=== PATIENT | male | born 1955 | race Asian ===

== ENCOUNTER 2016-08-20 08:59 | Inpatient (IN) | payer MEDICAID ==
[~2016-08-20] VITALS: Ht 177.8 cm; Wt 68.0 kg
[2016-08-20] VITALS (13 sets, daily range): BP systolic 150–204; BP diastolic 84–108
[2016-08-20] MEDS ORDERED: Lidocaine 1% 10mg/ml/Epi 0.005mg/ml 30ml vial INJ ONE (09:11)
[2016-08-20] MEDS ORDERED: ceFAZolin sod 1 GM in D5W 55 ML IVPB ONE (09:15)
[2016-08-20] MEDS ORDERED: Lidocaine 1% 10mg/ml/EPI 0.01mg/ml 50ml INJ ONE (09:15)
[2016-08-20] MEDS ORDERED: Morphine Sulfate 2mg/ml Inj IVP ONE (09:15)
[2016-08-20] MEDS ORDERED: Tubing IV Cassette IV ONE (09:22)
[2016-08-20] MEDS ORDERED: NS 55 ML IV ONE (09:22)
[2016-08-20] MEDS ORDERED: Hydrogen Peroxide 120ml Bottle TOPIC ONE (09:33)
[2016-08-20 09:39] LABS: BASOPHILS % (AUTO) 0.8 % (0.0-2.0); LYMPHOCYTES % (AUTO) 33.6 % (20.0-45.0); MEAN CORPUSCULAR HEMOGLOBIN 27.8 PG (27.0-31.0); MEAN CORPUSCULAR HGB CONC 32.2 G/DL (32.0-36.0); MEAN CORPUSCULAR VOLUME 86 FL (80-99); MEAN PLATELET VOLUME 5.3 FL (6.5-10.1); NEUTROPHILS % (AUTO) 59.5 % (45.0-75.0); PLATELET COUNT 304 K/UL (150-450); RED BLOOD COUNT 4.18 M/UL (4.70-6.10); RED CELL DISTRIBUTION WIDTH 13.9 % (11.6-14.8); WHITE BLOOD COUNT 5.3 K/UL (4.8-10.8)
[2016-08-20 09:49] LABS: PROTHROMBIN TIME 9.8 SEC (9.30-11.50)
[2016-08-20 09:53] LABS: ALANINE AMINOTRANSFERASE 19 U/L (3-41); ALBUMIN/GLOBULIN RATIO 1.5 (1.0-2.7); ANION GAP 13 (5-15); ASPARTATE AMINO TRANSFERASE 24 U/L (5-40); CALCIUM 8.7 mg/dL (8.6-10.2); CARBON DIOXIDE 25 mEQ/L (20-30); CHLORIDE 101 mEQ/L (98-107); CREATININE 0.7 mg/dL (0.7-1.2); GLOMERULAR FILTRATION RATE > 60 mL/min (>60); HEMOLYSIS 0; SODIUM 139 mEQ/L (135-145); TOTAL PROTEIN 6.6 g/dL (6.6-8.7)
[2016-08-20] MEDS ORDERED: VITAMIN D1000 UNI1 ORAL (10:37)
[2016-08-20] MEDS ORDERED: GLUCOSAMINE1000 M1 PO (10:38)
[2016-08-20] MEDS ORDERED: FISH OIL CAP1000 MG ORAL (10:38)
--- NOTE | 2016-08-20 10:39 | Emergency Room Report ---
History of Present Illness General Chief Complaint: Laceration Source: Patient Present Illness HPI Patient is a 60-year-old male who presented after injury to his left thigh. 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 The patient was noted to have pain to the left thigh. He denies any numbness or weakness to his foot or leg. The injury occurred just prior to arrival. There is a large amount of bleeding initially Allergies: Coded Allergies: No Known Allergies (Unverified , 08/20/16) Patient History Reviewed Nursing Documentation: PMH: Agreed, PSxH: Agreed Nursing Documentation-PMH Past Medical History: No Stated History Physical Exam Vital Signs Date Time Temp Pulse Resp B/P Pulse Ox O2 Delivery O2 Flow Rate FiO2 08/20/16 08:59 98.2 60 16 192/102 99 Room Air Sp02 EP Interpretation: reviewed, normal General Appearance: normal inspection, well appearing, no apparent distress, alert, GCS 15 Head: atraumatic ENT: normal ENT inspection, hearing grossly normal, normal voice Neck: normal inspection, full range of motion, supple, no bony tend Respiratory: normal inspection, lungs clear, normal breath sounds, no respiratory distress, no retraction, no wheezing Cardiovascular #1: regular rate, rhythm, no edema Gastrointestinal: normal inspection, normal bowel sounds, non tender, soft, no guarding, no hernia Genitourinary: no CVA tenderness Musculoskeletal: normal inspection, back normal, normal range of motion, other - large visible muscle defect to left thigh Neurologic: normal inspection, alert, oriented x3, responsive, machine bunch maker III-XII nml as tested, speech normal Psychiatric: normal inspection, judgement/insight normal, mood/affect normal Skin: normal color, no rash, laceration - large laceration to left distal thigh anterior Medical Decision Making Diagnostic Impression: Primary Impression: Laceration Additional Impression: Laceration of left quadriceps muscle, fascia and tendon, initial encounter ER Course Patient presented for left lower extremity injury. Differential diagnosis included but was not limited to fracture, contusion, vascular insufficiency, aortic aneurysm, cellulitis, foreign body.Because of complexity of patient's case laboratory testing and imaging studies were ordered. Laboratory testing was unremarkable. Patient was noted to have evidence of deep laceration of the left distal thigh anteriorly. The patient was irrigated. Patient was given TDAP Vaccine. Patient was given IV Ancef.X-ray imaging of the of the left knee read by radiology showed large amount of gas present in the subcutaneous tissue the anterior suprapatellar region extending into the knee joint. There is no evident fracture noted. Dr. Connor Matthews was contacted for orthopedic consult. Dr. Glass was contacted for inpatient management. Labs Test 08/20/16 09:19 White Blood Count 5.3 K/UL (4.8-10.8) Red Blood Count 4.18 M/UL (4.70-6.10) Hemoglobin 11.6 G/DL (14.2-18.0) Hematocrit 36.2 % (42.0-52.0) Mean Corpuscular Volume 86 FL (80-99) Mean Corpuscular Hemoglobin 27.8 PG (27.0-31.0) Mean Corpuscular Hemoglobin Concent 32.2 G/DL (32.0-36.0) Red Cell Distribution Width 13.9 % (11.6-14.8) Platelet Count 304 K/UL (150-450) Mean Platelet Volume 5.3 FL (6.5-10.1) Neutrophils (%) (Auto) 59.5 % (45.0-75.0) Lymphocytes (%) (Auto) 33.6 % (20.0-45.0) Monocytes (%) (Auto) 5.0 % (1.0-10.0) Eosinophils (%) (Auto) 1.0 % (0.0-3.0) Basophils (%) (Auto) 0.8 % (0.0-2.0) Prothrombin Time 9.8 SEC (9.30-11.50) Prothromb Time International Ratio 1.0 (0.9-1.1) Activated Partial Thromboplast Time 24 SEC (23-33) Sodium Level 139 mEQ/L (135-145) Potassium Level 4.0 mEQ/L (3.4-4.9) Chloride Level 101 mEQ/L (98-107) Carbon Dioxide Level 25 mEQ/L (20-30) Anion Gap 13 (5-15) Blood Urea Nitrogen 15 mg/dL (7-23) Creatinine 0.7 mg/dL (0.7-1.2) Estimat Glomerular Filtration Rate > 60 mL/min (>60) Glucose Level 168 mg/dL (74-106) Calcium Level 8.7 mg/dL (8.6-10.2) Total Bilirubin 0.4 mg/dL (0.0-1.2) Aspartate Amino Transf (AST/SGOT) 24 U/L (5-40) Alanine Aminotransferase (ALT/SGPT) 19 U/L (3-41) Alkaline Phosphatase 98 U/L (40-129) Total Protein 6.6 g/dL (6.6-8.7) Albumin 4.0 g/dL (3.5-5.2) Globulin 2.6 g/dL Albumin/Globulin Ratio 1.5 (1.0-2.7) EKG Diagnostic Results Rate: bradycardiac - 52 Rhythm: NSR ST Segments: no acute changes ASA given to the pt in ED: No Rhythm Strip Diag. Results EP Interpretation: yes Rhythm: NSR, no PVC's, no ectopy Last Vital Signs Date Time Temp Pulse Resp B/P Pulse Ox O2 Delivery O2 Flow Rate FiO2 08/20/16 08:59 98.2 60 16 192/102 99 Room Air Status: unchanged Disposition: ADMITTED INPATIENT Condition: Serious Referrals: NOT CHOSEN IPA/,REFERRING (PCP) Octaviano Canas Aug 20, 2016 10:39
[2016-08-20] MEDS ORDERED: TdaP Vaccine 0.5ml Syr IM ONE (11:00)
--- NOTE | 2016-08-20 11:17 | Diagnostic Imaging Report ---
Indications: Penetrating injury to left knee, pain Technique: 3 views left knee. Findings: Comparison: None Large amount of gas is present in the subcutaneous soft tissues of the anterior suprapatellar region as well as throughout the suprapatellar bursa extending into the knee joint. The soft tissues in the region of the quadriceps tendon is surrounded by this gas or irregular. No fracture, dislocation, joint space widening , foreign body, or other acute changes are identified. IMPRESSION: Soft tissue and intra-articular gas likely due to penetrating trauma. No associated fracture or foreign body identified. Questionable injury to quadriceps tendon. No evidence of patellar displacement.
--- NOTE | 2016-08-20 13:20 | Pre-Procedure Note/Attestation ---
Pre-Procedure Note/Attestation Complete Prior to Procedure Planned Procedure: left Procedure Narrative: knee irrigation and debridement and tendon repair Indications for Procedure Pre-Operative Diagnosis: Open arthrotomy traumatic left knee Attestation I attest that I discussed the nature of the procedure; its benefits; risks and complications; and alternatives (and the risks and benefits of such alternatives ), prior to the procedure, with the patient (or the patient's legal customer service representative teacher). I attest that, if there was a reasonable possibility of needing a blood transfusion, the patient (or the patient's legal customer service representative teacher) was given the [facility] standardized written summary, pursuant to the [place] Blood Safety Act ([place] Health and Safety Code # 1645, as amended). I attest that I re-evaluated the patient just prior to the surgery and that there has been no change in the patient's H&P, except as documented below: BONITA SCHOFIELD Aug 20, 2016 13:20
[2016-08-20] MEDS ORDERED: ceFAZolin sod 1 GM in D5W 55 ML IV ONE (13:30)
[2016-08-20] MEDS ORDERED: Midazolam 2mg/2ml Inj IVP ONE (14:30)
[2016-08-20] MEDS ORDERED: HYDROmorphone 1mg/ml Carpuject SUBQ PRN (14:45)
[2016-08-20] MEDS ORDERED: Hydromorphone 0.5mg/0.5ml inj SUBQ PRN (14:45)
[2016-08-20] MEDS ORDERED: Norco 5mg/325mg tab ORAL PRN (14:45)
[2016-08-20] MEDS ORDERED: Propofol 10mg/ml 20ml IV ONE (14:55)
[2016-08-20] MEDS ORDERED: LR 1000ml ONE (15:00)
[2016-08-20] MEDS ORDERED: fentaNYL 100 mcg/2 mL IV ONE (15:00)
[2016-08-20] MEDS ORDERED: Midazolam 2mg/2ml Inj ONE (15:00)
[2016-08-20] MEDS ORDERED: LR 1000ml 1,000 ML IVLG SCH (15:38)
--- NOTE | 2016-08-20 15:38 | Anethesia Preoperative Eval ---
Anesthesia Pre-op PMH/ROS General Date of Evaluation: Aug 20, 2016 Time of Evaluation: 15:04 Anesthesiologist: Ritesh ASA Score: ASA 2 Mallampati Score Class I : Soft palate, uvula, fauces, pillars visible Class II: Soft palate, uvula, fauces visible Class III: Soft palate, base of uvula visible Class IV: Only hard plate visible Mallampati Classification: Class II Surgeon: Byron Diagnosis: L knee torn quadriceps tendon Surgical Procedure: L knee repair of quadriceps tendon Anesthesia History: none Family History: no anesthesia problems Allergies: Coded Allergies: No Known Allergies (Unverified , 08/20/16) Medications: see eMAR Past Medical History Cardiovascular: Reports: HTN, Denies: CAD, NH, arrhythmia, other, valve dz Pulmonary: Denies: COPD, MICHELLE, asthma, other Gastrointestinal/Genitourinary: Reports: GERD, Denies: CRI, ESRD, other Neurologic/Psychiatric: Denies: CVA, TIA, dementia, depression/anxiety, other Endocrine: Denies: DM, hypothyroidism, other, steroids HEENT: Denies: TLINGIT & HAIDA (L), TLINGIT & HAIDA (R), cataract (L), cataract (R), glaucoma, other Hematology/Immune: Denies: DVT, anemia, bleeding disorder, other Musculoskeletal/Integumentary: Reports: DJD, Denies: DDD, OA, RA, edema, other PMH Narrative: as above PSxH Narrative: see chart Anesthesia Pre-op Phys. Exam Physician Exam Last Vital Signs Date Time Temp Pulse Resp B/P Pulse Ox O2 Delivery O2 Flow Rate FiO2 08/20/16 13:26 182/103 08/20/16 12:30 97.5 50 18 98 Room Air Constitutional: NAD Neurologic: CN 2-12 intact Cardiovascular: RRR, no M/R/G Respiratory: CTA Airway Exam Mallampati Score: Class II MO: limited Neck: stiff ROM: limited Teeth: missing, broken Dentures: no lower, no upper Anesthesia Pre-op A/P Labs Hematology Test 08/20/16 09:19 White Blood Count 5.3 K/UL (4.8-10.8) Red Blood Count 4.18 M/UL (4.70-6.10) L Hemoglobin 11.6 G/DL (14.2-18.0) L Hematocrit 36.2 % (42.0-52.0) L Mean Corpuscular Volume 86 FL (80-99) Mean Corpuscular Hemoglobin 27.8 PG (27.0-31.0) Mean Corpuscular Hemoglobin Concent 32.2 G/DL (32.0-36.0) Red Cell Distribution Width 13.9 % (11.6-14.8) Platelet Count 304 K/UL (150-450) Mean Platelet Volume 5.3 FL (6.5-10.1) L Neutrophils (%) (Auto) 59.5 % (45.0-75.0) Lymphocytes (%) (Auto) 33.6 % (20.0-45.0) Monocytes (%) (Auto) 5.0 % (1.0-10.0) Eosinophils (%) (Auto) 1.0 % (0.0-3.0) Basophils (%) (Auto) 0.8 % (0.0-2.0) Coagulation Test 08/20/16 09:19 Prothrombin Time 9.8 SEC (9.30-11.50) Prothromb Time International Ratio 1.0 (0.9-1.1) Activated Partial Thromboplast Time 24 SEC (23-33) Chemistry Test 08/20/16 09:19 Sodium Level 139 mEQ/L (135-145) Potassium Level 4.0 mEQ/L (3.4-4.9) Chloride Level 101 mEQ/L (98-107) Carbon Dioxide Level 25 mEQ/L (20-30) Anion Gap 13 (5-15) Blood Urea Nitrogen 15 mg/dL (7-23) Creatinine 0.7 mg/dL (0.7-1.2) Estimat Glomerular Filtration Rate > 60 mL/min (>60) Glucose Level 168 mg/dL (74-106) H Calcium Level 8.7 mg/dL (8.6-10.2) Total Bilirubin 0.4 mg/dL (0.0-1.2) Aspartate Amino Transf (AST/SGOT) 24 U/L (5-40) Alanine Aminotransferase (ALT/SGPT) 19 U/L (3-41) Alkaline Phosphatase 98 U/L (40-129) Total Protein 6.6 g/dL (6.6-8.7) Albumin 4.0 g/dL (3.5-5.2) Globulin 2.6 g/dL Albumin/Globulin Ratio 1.5 (1.0-2.7) Studies Pre-op Studies: EKG - NSR Risk Assessment & Plan Assessment: ASA 2 Plan: GA with LMA Status Change Before Surgery: No Pre-Antibiotics Drug: Ancef 1gr. Given Within 1 Hr of Incision: Yes Time Given: 15:12 GABRIELA CONTRERAS M.D. Aug 20, 2016 15:38
[2016-08-20] MEDS ORDERED: DiphenhydrAMINE 50mg/ml Inj IVP PRN (15:45)
[2016-08-20] MEDS ORDERED: Hydromorphone 0.5mg/0.5ml inj IVP PRN (15:45)
[2016-08-20] MEDS ORDERED: Meperidine 25mg/ml Inj IV PRN (15:45)
[2016-08-20] MEDS ORDERED: Ketorolac 30mg Inj IV PRN (15:45)
[2016-08-20] MEDS ORDERED: Bacitracin Irrig 2000ml IRRIG ONE (16:00)
[2016-08-20] MEDS ORDERED: NS Irrig 2000ml IRRIG ONE (16:00)
--- NOTE | 2016-08-20 16:01 | Brief Operative Note ---
Immediate Post Operative Note Operative Note Chief Complaint: left knee laceration Pre-op Diagnosis: left knee laceration, quad tendon injury Procedure: left knee i &D and tendon repair Post-op Diagnosis: same as pre-op Findings: consistent w/pre-op dx studies Surgeon: md ramez [place]: noemi chavira Anesthesiologist: md cali Anesthesia: general Specimen: none Complications: none Condition: stable Estimated Blood Loss: minimal Drains: none Implant(s) used?: No ANT CHAVIRA Aug 20, 2016 16:01
--- NOTE | 2016-08-20 16:14 | Immediate Post-Op Evaluation ---
Immediate Post-Op Evalulation Immediate Post-Op Evalulation Procedure: L knee quadriceps tendon repair Date of Evaluation: Aug 20, 2016 Time of Evaluation: 16:13 IV Fluids: 800 Blood Products: none Estimated Blood Loss: <50 Urinary Output: none Blood Pressure Systolic: 150 Blood Pressure Diastolic: 76 Pulse Rate: 72 Respiratory Rate: 20 O2 Sat by Pulse Oximetry: 99 Temperature (Fahrenheit): 98.1 Pain Score (1-10): 2 Nausea: No Vomiting: No Complications none Patient Status: patent, none Hydration Status: adequate GABRIELA CONTRERAS M.D. Aug 20, 2016 16:14
--- NOTE | 2016-08-20 17:46 | Diagnostic Imaging Report ---
Indications: Status post left knee surgery Technique: Portable AP and lateral views left knee at 1653 Findings: Comparison: 1009 Percutaneous drainage catheter has been placed within the suprapatellar bursa and knee joint space. There has been subtotal resolution of intra-articular and subcutaneous gas with a few small remaining subcutaneous gas bubbles. Patella remains normally aligned. IMPRESSION: Surgical changes as described
[2016-08-20] MEDS: Docusate 100mg tablet ORAL SCH (18:00)
[2016-08-20] MEDS: D5 1/2NS 1,000 ML IV SCH (18:26)
[2016-08-20] MEDS: ceFAZolin sod 1 GM in D5W 55 ML IV SCH (22:51)
[2016-08-20] MEDS: oxyCONTIN 20mg tab ORAL SCH (22:51)
[2016-08-21] VITALS (7 sets, daily range): BP systolic 143–187; BP diastolic 84–105
--- NOTE | 2016-08-21 00:39 | Consultation ---
DATE OF CONSULTATION: 08/20/2016 ORTHOPEDIC CONSULTATION CONSULTING PHYSICIAN: Connor Matthews M.D. REQUESTING PHYSICIAN: Brando Glass M.D. REASON FOR CONSULTATION: Left traumatic arthrotomy with possible quadriceps tendon rupture with air in the knee. BRIEF HISTORY: The patient is a pleasant 60-year-old gentleman who was working with a skill saw and apparently that saw hit his left knee. He had a laceration over the proximal portion of his patella. He was evaluated at the [facility] and an x-ray showed air in the knee. Therefore, the patient was admitted for definitive care. The patient is generally healthy. He has had no other significant medical problems. PAST MEDICAL HISTORY: Significant for possible hypertension. The patient is not taking any medication. PAST SURGICAL HISTORY: MEDICATIONS: He states that he has not had any medications. He has not taken any. ALLERGIES: No known drug allergies. SOCIAL HISTORY: He smokes a pack a day. He drinks socially 1 to 2 drinks a week. He lives at home. He does not have any other significant issues. He is ambulatory. REVIEW OF SYSTEMS: There is no fever, chills, or any signs of infection. There are no other significant cardiopulmonary issues. PHYSICAL EXAMINATION: EXTREMITIES: Examination of the left knee reveals that he is able to wiggle his toes. He has got a laceration proximal to the patella. The laceration goes down deep over the quadriceps tendon. There may be a partial quadriceps tendon rupture; however, the patient is able to do a straight leg raise and lift his heel off the bed. NEUROLOGIC: Grossly intact distally except he has had some decreased sensation around the wound. X-RAYS: X-ray of the left knee 3 views, there is no fracture, however, there is air inside the left knee. IMPRESSION: Left knee traumatic arthrotomy with possible partial quadriceps tendon rupture. PLAN: At this time, we will go ahead and take the patient to the operating room for irrigation and debridement and washout and quadriceps tendon repair. Risks and benefits of the surgery were discussed. The risks of infection, bleeding, and neurovascular complication were discussed. He understands the nature of surgery and the complications associated with it and would like to proceed with it. All questions were answered. Possible stiffness, infection, needing further surgery and other complications were discussed with him and he understands and would like to proceed with surgery as soon as possible. All questions were answered. Connor Matthews M.D. DR: MEG JOB#: [id number] CC:
--- NOTE | 2016-08-21 00:49 | Operative Note - Dictated ---
DATE OF OPERATION: 08/20/2016 PREOPERATIVE DIAGNOSES: 1. Left knee traumatic arthrotomy. 2. Left knee quadriceps tendon rupture. POSTOPERATIVE DIAGNOSES: 1. Left knee traumatic arthrotomy with approximately a 7 cm wound at the proximal quadriceps musculotendinous junction. 2. Left knee quadriceps tendon rupture tear near the musculotendinous junction 5 cm oblique. PROCEDURE: 1. Irrigation and debridement with Simpulse lavage of the knee with triple antibiotic fluid, total of 2 liters. 2. Left knee quadriceps tendon repair using #1 Vicryl suture through the musculotendinous junction with multiple Vicryl stitches. 3. Placement of a large Hemovac drain in the left knee. 4. Meticulous layered knee wound closure with #2 Vicryl suture and skin closure using joseph. SURGEON: Connor Matthews M.D. PUBLIC ADDRESS ANNOUNCER: Josee Powell PA-C. ANESTHESIOLOGIST: Ovidio Awad M.D. ANESTHESIA: General LMA anesthesia. EBL: Less than 100 mL. COMPLICATIONS: None. TOURNIQUET TIME: None. BRIEF HISTORY: The patient is a pleasant 60-year-old male who sustained injury to his left knee when a circular saw hit his knee. He had new onset of pain and he was brought in to the [facility] ER. At the ER, it was noted that there was gas in the knee and air in the knee and after full discussion of the risks and benefits of the surgery and complications associated, which would including infection, bleeding, neurovascular complication, possible stiffness, possible decreased range of motion, possibility of continued pain, and other complication that may arise, he opted for surgical treatment for left knee irrigation and debridement, and quadriceps tendon repair. Risks, benefits, and complications of the surgery were discussed with him and he understood and agreed. OPERATIVE PROCEDURE: The patient was brought to the operating room table and was placed supine. All pressure points were well padded. General LMA anesthesia was induced. The left leg was prepped and draped in usual sterile fashion. The left leg wound was inspected. There was an approximately 5 cm oblique tear in the suprapatellar area. The incision was then extended distally by 2 cm and proximal 2 cm to allow access to the wound. The wound was then debrided sharply using a combination of knife and scissors. At this point, the quadriceps tendon was visualized. There was a tear through the quadriceps tendon at the musculotendinous junction measuring approximately 5 cm. This communicated with inside the knee. There was no gross contamination. At this point, using Simpulse irrigation, the knee joint and the wound were irrigated using 2 liters of fluid. Once this was completed, all the excess fluid was removed. The wound looked very clean. The knee joint had no contamination. At this point, the quadriceps tendon repair was performed using #1 Vicryl suture with [id number] stitches and multiple stitches at the musculotendinous junction. Once this was completed, a large Hemovac drain was placed inside the knee, which will be removed in about 24 hours. At this point, the skin edges were closed using 2-0 Vicryl suture and the skin was closed using joseph. Sterile dressing was applied. The patient was placed in a knee immobilizer and was taken to the recovery room in stable condition. All lap counts and instrument counts were correct at the end of the case. Connor Matthews M.D. DR: MEG JOB#: [id number] CC:
[2016-08-21] MEDS: D5 1/2NS 1,000 ML IV SCH ×2 (06:30→20:17)
[2016-08-21] MEDS: ceFAZolin sod 1 GM in D5W 55 ML IV SCH (06:30)
[2016-08-21] MEDS ORDERED: Norco 5mg/325mg tab ORAL PRN (06:45)
[2016-08-21 07:36] LABS: BASOPHILS % (AUTO) 0.6 % (0.0-2.0); EOSINOPHILS % (AUTO) 0.4 % (0.0-3.0); LYMPHOCYTES % (AUTO) 19.7 % (20.0-45.0); MEAN CORPUSCULAR HEMOGLOBIN 27.8 PG (27.0-31.0); MEAN CORPUSCULAR HGB CONC 31.9 G/DL (32.0-36.0); MEAN CORPUSCULAR VOLUME 87 FL (80-99); MONOCYTES % (AUTO) 7.4 % (1.0-10.0); NEUTROPHILS % (AUTO) 71.9 % (45.0-75.0); PLATELET COUNT 297 K/UL (150-450); RED BLOOD COUNT 4.29 M/UL (4.70-6.10); RED CELL DISTRIBUTION WIDTH 14.4 % (11.6-14.8); WHITE BLOOD COUNT 8.7 K/UL (4.8-10.8)
[2016-08-21 07:54] LABS: ANION GAP 12 (5-15); CALCIUM 8.4 mg/dL (8.6-10.2); CARBON DIOXIDE 27 mEQ/L (20-30); CHLORIDE 99 mEQ/L (98-107); CREATININE 0.9 mg/dL (0.7-1.2); GLOMERULAR FILTRATION RATE > 60 mL/min (>60); HEMOLYSIS 6; POTASSIUM 3.9 mEQ/L (3.4-4.9); SODIUM 138 mEQ/L (135-145)
--- NOTE | 2016-08-21 08:34 | Orthopedic Progress Note ---
Orthopedic - Progress Note Subjective Symptoms: c/o post-op knee pain Objective Vital Signs Laboratory Tests Test 08/20/16 09:19 08/21/16 06:47 White Blood Count 5.3 K/UL (4.8-10.8) 8.7 K/UL (4.8-10.8) # Red Blood Count 4.18 M/UL (4.70-6.10) L 4.29 M/UL (4.70-6.10) L Hemoglobin 11.6 G/DL (14.2-18.0) L 11.9 G/DL (14.2-18.0) L Hematocrit 36.2 % (42.0-52.0) L 37.3 % (42.0-52.0) L Mean Corpuscular Volume 86 FL (80-99) 87 FL (80-99) Mean Corpuscular Hemoglobin 27.8 PG (27.0-31.0) 27.8 PG (27.0-31.0) Mean Corpuscular Hemoglobin Concent 32.2 G/DL (32.0-36.0) 31.9 G/DL (32.0-36.0) L Red Cell Distribution Width 13.9 % (11.6-14.8) 14.4 % (11.6-14.8) Platelet Count 304 K/UL (150-450) 297 K/UL (150-450) Mean Platelet Volume 5.3 FL (6.5-10.1) L 6.0 FL (6.5-10.1) L Neutrophils (%) (Auto) 59.5 % (45.0-75.0) 71.9 % (45.0-75.0) Lymphocytes (%) (Auto) 33.6 % (20.0-45.0) 19.7 % (20.0-45.0) L Monocytes (%) (Auto) 5.0 % (1.0-10.0) 7.4 % (1.0-10.0) Eosinophils (%) (Auto) 1.0 % (0.0-3.0) 0.4 % (0.0-3.0) Basophils (%) (Auto) 0.8 % (0.0-2.0) 0.6 % (0.0-2.0) Prothrombin Time 9.8 SEC (9.30-11.50) Prothromb Time International Ratio 1.0 (0.9-1.1) Activated Partial Thromboplast Time 24 SEC (23-33) Sodium Level 139 mEQ/L (135-145) 138 mEQ/L (135-145) Potassium Level 4.0 mEQ/L (3.4-4.9) 3.9 mEQ/L (3.4-4.9) Chloride Level 101 mEQ/L (98-107) 99 mEQ/L (98-107) Carbon Dioxide Level 25 mEQ/L (20-30) 27 mEQ/L (20-30) Anion Gap 13 (5-15) 12 (5-15) Blood Urea Nitrogen 15 mg/dL (7-23) 13 mg/dL (7-23) Creatinine 0.7 mg/dL (0.7-1.2) 0.9 mg/dL (0.7-1.2) Estimat Glomerular Filtration Rate > 60 mL/min (>60) > 60 mL/min (>60) Glucose Level 168 mg/dL (74-106) H 165 mg/dL (74-106) H Calcium Level 8.7 mg/dL (8.6-10.2) 8.4 mg/dL (8.6-10.2) L Total Bilirubin 0.4 mg/dL (0.0-1.2) Aspartate Amino Transf (AST/SGOT) 24 U/L (5-40) Alanine Aminotransferase (ALT/SGPT) 19 U/L (3-41) Alkaline Phosphatase 98 U/L (40-129) Total Protein 6.6 g/dL (6.6-8.7) Albumin 4.0 g/dL (3.5-5.2) Globulin 2.6 g/dL Albumin/Globulin Ratio 1.5 (1.0-2.7) Last 24 Hour Vital Signs Date Time Temp Pulse Resp B/P Pulse Ox O2 Delivery O2 Flow Rate FiO2 08/21/16 07:05 159/97 08/21/16 04:00 97.0 70 20 159/97 97 Nasal Cannula 08/21/16 00:00 99.0 68 20 152/91 98 Nasal Cannula 08/20/16 20:00 98.1 72 18 151/92 98 Nasal Cannula 2.0 08/20/16 17:30 98.4 55 18 150/84 98 Nasal Cannula 3.0 08/20/16 17:15 98.6 08/20/16 17:10 98.4 62 16 166/93 100 Nasal Cannula 3.0 62 08/20/16 17:00 64 14 165/93 100 Nasal Cannula 3.0 64 08/20/16 16:53 204/97 08/20/16 16:50 58 16 189/96 100 Nasal Cannula 3.0 58 08/20/16 16:40 50 19 204/97 100 Simple Mask 6.0 50 08/20/16 16:30 52 17 180/98 100 Simple Mask 6.0 52 08/20/16 16:20 61 22 172/91 100 Simple Mask 6.0 61 08/20/16 16:15 64 18 160/95 100 Simple Mask 6.0 64 08/20/16 16:14 72 20 99 08/20/16 16:10 98.6 73 12 150/89 100 Simple Mask 6.0 73 08/20/16 13:26 182/103 08/20/16 12:30 97.5 50 18 182/103 98 Room Air 08/20/16 12:30 50 198/105 98 Room Air 08/20/16 11:44 98.3 46 16 179/92 100 Room Air 08/20/16 11:00 46 16 179/92 100 Room Air 08/20/16 10:00 50 16 177/108 100 Room Air 08/20/16 10:00 98.3 08/20/16 08:59 98.2 60 16 192/102 99 Room Air I&O Intake and Output 08/20/16 08/21/16 19:00 07:00 Intake Total 1030 ml 1007.5 ml Output Total 50 ml 60 ml Balance 980 ml 947.5 ml Intake Oral 0 ml 240 ml IV Total 1030 ml 767.5 ml Output Urine Total 0 ml Drainage Total 60 ml Estimated Blood Loss 50 ml # Bowel Movements 1 Wound: clean, dry, intact Drains: hemovac - 60cc outpt. drain removed at bedside today Neuro Status: normal Vascular Status: normal Assessment Post-op Diagnosis POD 1 Procedure Performed left knee i &D and tendon repair Plan Plan: discharge to home - once last dose abx given. f/u Dr. Matthews 2 weeks for suture removal and to change into hinge knee brace ANT MARQUEZ Aug 21, 2016 08:34
[2016-08-21] MEDS: celeBREX 200mg Cap **SURGERY PATIENTS ONLY ORAL SCH (09:03)
[2016-08-21] MEDS: Docusate 100mg tablet ORAL SCH ×3 (09:04→17:59)
[2016-08-21] MEDS: Vitamin D 1000 IU Tab ORAL SCH (09:04)
[2016-08-21] MEDS: oxyCONTIN 20mg tab ORAL SCH ×2 (09:04→20:17)
--- NOTE | 2016-08-21 12:06 | 48 Hour Post Anesthesia Eval ---
Post Anesthesia Evaluation Procedure: L knee quadriceps tendon repair Date of Evaluation: Aug 21, 2016 Time of Evaluation: 11:05 Blood Pressure Systolic: 168 0: 100 Pulse Rate: 78 Respiratory Rate: 18 Temperature (Fahrenheit): 98.5 O2 Sat by Pulse Oximetry: 97 Airway: patent Nausea: No Vomiting: No Pain Intensity: 2 Hydration Status: adequate Cardiopulmonary Status: Stable Mental Status/LOC: patient returned to baseline Follow-up Care/Observations: 0 Post-Anesthesia Complications: 0 Follow-up care needed: N/A Marc Ramirez MD Aug 21, 2016 12:06
--- NOTE | 2016-08-21 13:40 | Infectious Diseases Prog Note ---
Assessment/Plan Problems: (1) Injury of left thigh Assessment & Plan: with air in the suprapatellar area, will start vancomycin, cefepime and flagyl empirically to cover for possible infection , and send blood culture (2) Laceration of left quadriceps muscle, fascia and tendon, initial encounter Assessment & Plan: S/P surgical repair , will continue wide spectrum antibiotics , monitor culture (3) Hypertension Assessment & Plan: continue meds to keep systolic less than 140 Subjective Allergies: Coded Allergies: No Known Allergies (Unverified , 08/20/16) Objective Vital Signs Last 24 Hour Vital Signs Date Time Temp Pulse Resp B/P Pulse Ox O2 Delivery O2 Flow Rate FiO2 08/21/16 12:06 78 18 97 08/21/16 08:00 99.5 78 18 168/100 99 Room Air 08/21/16 07:05 159/97 08/21/16 04:00 97.0 70 20 159/97 97 Nasal Cannula 08/21/16 00:00 99.0 68 20 152/91 98 Nasal Cannula 08/20/16 20:00 98.1 72 18 151/92 98 Nasal Cannula 2.0 08/20/16 17:30 98.4 55 18 150/84 98 Nasal Cannula 3.0 08/20/16 17:15 98.6 08/20/16 17:10 98.4 62 16 166/93 100 Nasal Cannula 3.0 62 08/20/16 17:00 64 14 165/93 100 Nasal Cannula 3.0 64 08/20/16 16:53 204/97 08/20/16 16:50 58 16 189/96 100 Nasal Cannula 3.0 58 08/20/16 16:40 50 19 204/97 100 Simple Mask 6.0 50 08/20/16 16:30 52 17 180/98 100 Simple Mask 6.0 52 08/20/16 16:20 61 22 172/91 100 Simple Mask 6.0 61 08/20/16 16:15 64 18 160/95 100 Simple Mask 6.0 64 08/20/16 16:14 72 20 99 08/20/16 16:10 98.6 73 12 150/89 100 Simple Mask 6.0 73 Height (Feet): 5 Height (Inches): 10.00 Weight (Pounds): 150 Laboratory Tests Test 08/21/16 06:47 White Blood Count 8.7 K/UL (4.8-10.8) # Red Blood Count 4.29 M/UL (4.70-6.10) L Hemoglobin 11.9 G/DL (14.2-18.0) L Hematocrit 37.3 % (42.0-52.0) L Mean Corpuscular Volume 87 FL (80-99) Mean Corpuscular Hemoglobin 27.8 PG (27.0-31.0) Mean Corpuscular Hemoglobin Concent 31.9 G/DL (32.0-36.0) L Red Cell Distribution Width 14.4 % (11.6-14.8) Platelet Count 297 K/UL (150-450) Mean Platelet Volume 6.0 FL (6.5-10.1) L Neutrophils (%) (Auto) 71.9 % (45.0-75.0) Lymphocytes (%) (Auto) 19.7 % (20.0-45.0) L Monocytes (%) (Auto) 7.4 % (1.0-10.0) Eosinophils (%) (Auto) 0.4 % (0.0-3.0) Basophils (%) (Auto) 0.6 % (0.0-2.0) Sodium Level 138 mEQ/L (135-145) Potassium Level 3.9 mEQ/L (3.4-4.9) Chloride Level 99 mEQ/L (98-107) Carbon Dioxide Level 27 mEQ/L (20-30) Anion Gap 12 (5-15) Blood Urea Nitrogen 13 mg/dL (7-23) Creatinine 0.9 mg/dL (0.7-1.2) Estimat Glomerular Filtration Rate > 60 mL/min (>60) Glucose Level 165 mg/dL (74-106) H Calcium Level 8.4 mg/dL (8.6-10.2) L Current Medications Medications (Trade) Dose Ordered Sig/[place] Route PRN Reason Start Time Stop Time Status Last Admin Dose Admin Acetaminophen (Tylenol) 650 mg Q6H PRN ORAL Mild Pain/Temp > 100.5 08/20/16 14:45 09/19/16 14:44 Acetaminophen/ Hydrocodone Bitart ([place] 5/325) 1 tab Q4H PRN ORAL Mild Pain (Pain Scale 1-3) 08/21/16 06:45 08/28/16 06:44 Cefazolin Sodium/ Dextrose (Ancef/D5W) 55 ml @ 110 mls/hr Q8H IV 08/20/16 23:00 08/21/16 15:29 08/21/16 06:30 Celecoxib 200 mg 200 mg DAILY ORAL 08/21/16 09:00 09/20/16 08:59 08/21/16 09:03 Clonidine HCl 0.1 mg 0.1 mg Q4H PRN ORAL SBP>160, DBP>90 08/20/16 13:15 09/19/16 13:14 08/21/16 07:05 Dextrose/Sodium Chloride (D5 0.45% NS) 1,000 ml @ 75 mls/hr Q13H IV 08/20/16 18:00 09/19/16 17:59 08/21/16 06:30 Docusate Sodium (Colace) 100 mg THREE TIMES A DAY ORAL 08/20/16 18:00 09/19/16 17:59 08/21/16 13:17 Hydromorphone HCl (Dilaudid) 0.5 mg Q4H PRN SUBQ Mild Pain (Pain Scale 1-3) 08/20/16 14:45 08/27/16 14:44 Hydromorphone HCl (Dilaudid) 1 mg Q3H PRN SUBQ Moderate Pain (Pain Scale 4-6) 08/20/16 14:45 08/27/16 14:44 Hydromorphone HCl (Dilaudid) 2 mg Q2H PRN SUBQ Severe Pain (Pain Scale 7-10) 08/20/16 14:45 08/27/16 14:44 Ondansetron HCl (Zofran) 4 mg Q6H PRN IVP Nausea & Vomiting 08/20/16 14:45 09/19/16 14:44 Oxycodone HCl (OxyCONTIN) 20 mg EVERY 12 HOURS ORAL 08/20/16 21:00 08/27/16 20:59 08/21/16 09:04 Temazepam (Restoril) 7.5 mg HSPRN PRN ORAL Insomnia 08/20/16 14:45 08/27/16 14:44 Vitamin D (Vitamin D) 1,000 intlu DAILY ORAL 08/21/16 09:00 09/20/16 08:59 08/21/16 09:04 Momo Cho M.D. Aug 21, 2016 13:40
[2016-08-21] MEDS: metroNIDAZOLE 500mg tab ORAL SCH ×2 (14:33→21:30)
[2016-08-21] MEDS: Vancomycin 1 GM in D5W 275 ML IVPB SCH (16:04)
--- NOTE | 2016-08-21 16:29 | Cardiology Report ---
APPROVED REPORT EKG Measurement Heart [id number] Sinus bradycardia Voltage criteria for left ventricular hypertrophy Abnormal ECG
[2016-08-21] MEDS: Cefepime HCl 1 GM in D5W 55 ML IVPB SCH (17:59)
--- NOTE | 2016-08-21 19:39 | History and Physical Report ---
DATE OF ADMISSION: 08/20/2016 HISTORY OF PRESENT ILLNESS: The patient is here because of attempting to cut himself with electric saw on the left thigh. 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 Dr. Matthews was aware and admit the patient emergently to the operating room for surgical repair. The patient denies any significant pain at this point. Denies nausea, vomiting, or diarrhea. Denies fevers and chills. PAST MEDICAL HISTORY: Hypertension. PAST SURGICAL HISTORY: Abdominal surgery of unknown etiology. ALLERGIES: No known allergies. MEDICATIONS: Fish oil, vitamin D3. FAMILY HISTORY: Noncontributory. SOCIAL HISTORY: Denies history of smoking, alcohol, or illicit drugs. REVIEW OF SYSTEMS: HEENT: Denies headache. Respiratory: Denies shortness of breath. Denies cough. Cardiovascular: Denies chest pain. No orthopnea. Gastrointestinal: Denies nausea, vomiting, or diarrhea. Extremities: Reports pain in the left thigh where the injury was done. Central Nervous System: Denies change in vision or speech pattern. PHYSICAL EXAMINATION: VITAL SIGNS: Temperature 100.4, pulse 55, blood pressure 160/84. HEENT: PERRLA. NECK: Supple. No lymphadenopathy. CHEST: Clear to auscultation. GASTROINTESTINAL: Soft and nontender. EXTREMITIES: Status post surgical repair. NEUROLOGIC: Oriented. LABORATORY DATA: WBC 5.3, hemoglobin 11.6, platelets 304,000. Sodium 139, potassium 4, BUN 15, creatinine 0.7, glucose 168. ASSESSMENT AND PLAN: 1. . 2. Hypertension. 3. Saw injury on the left thigh, accidental. I have asked basically Dr. Godoy, Dr. Cho, Dr. Camacho, and Dr. Matthews to see the patient. Dr. Camacho is in in charge of clearing the patient for surgery. Brando Glass M.D. DR: Isabell JOB#: [id number] CC:
--- NOTE | 2016-08-21 20:39 | Consultation ---
DATE OF CONSULTATION: INFECTIOUS DISEASE CONSULTATION CONSULTING PHYSICIAN: Momo Cho M.D. REQUESTING PHYSICIAN: Brando Glass M.D. REASON FOR CONSULTATION: Left thigh laceration with quadriceps tendon rupture due to a circular saw. Recommendation for antibiotics treatment. 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 The patient notes that deep skin cut above his left knee on the anterior medial aspect. He started bleeding and he tied his thigh to stop the bleeding. The patient was brought into the emergency room by paramedics after he had a large amount of bleeding from the left thigh. His temperature was 98.2 degrees and saturating 99% on room air. X-ray of the left knee showed gap in the subcutaneous tissue in the anterior suprapatellar region extending into the knee joint, but no evidence of fracture. The patient was taken to the operating room by Dr. Matthews and he had left quadriceps tendon irrigation and debridement with incision and drainage of the left knee joint and he was started on cefazolin and I was consulted by the primary provider for antibiotics recommendation and further treatment. PAST MEDICAL HISTORY: Negative. PAST SURGICAL HISTORY: Negative. SOCIAL HISTORY: The patient is single. Denies using any drugs, tobacco, or alcohol. He works in construction. MEDICATIONS: The patient is on cefazolin 1 g IV q.8 hours. For the rest of his medications, please refer to MAR. ALLERGIES: He has no known drug allergy. REVIEW OF SYSTEMS: A 12-point of system reviewed were all negative apart from the one I mentioned above in my History and Physical. PHYSICAL EXAMINATION: VITAL SIGNS: Temperature is 98.1 degrees, pulse 72, respirations 20, blood pressure 143/86, and saturation 99% on room air. GENERAL: A middle-aged, Slovak speaking, laying in bed, awake, alert, and not in distress. HEENT: Normocephalic and atraumatic. Pupils both reactive to light. Dry oral mucosa. No exudate. NECK: Supple. No lymphadenopathy. CARDIOVASCULAR: Regular rate and rhythm. No murmur. No gallop. LUNGS: Clear bilaterally. No wheezing or rhonchi. ABDOMEN: Soft, nontender, and nondistended. Positive bowel sounds. No hepatosplenomegaly or ascites. EXTREMITIES: No edema or cyanosis. Left knee covered with dressing and bandage. LABORATORY DATA: Labs showed white count of 8.7, hemoglobin of 11.9, and platelet count of 297,000. BUN of 12 and creatinine of 0.9. IMAGING: Knee x-ray showed soft tissue and intraarticular and subcutaneous gas with few small remaining subcutaneous gas bubble. Patella remain normally aligned. ASSESSMENT AND PLAN: 1. Left [id number] soft tissue injury with air in the suprapatellar area, suspect soft tissue infection. We will send blood culture. Start vancomycin, cefepime, and Flagyl empirically. The patient had surgical washout. No culture was obtained at this point. 2. Laceration of the left quadriceps muscle fascia and tendon status post surgical debridement and wash out. We will start the patient on wide-spectrum antibiotics therapy and await blood culture. Further recommendation as per ortho. 3. Hypertension. Continue blood pressure medications. Keep systolic less than 140. Momo Cho M.D. DR: ANIL JOB#: [id number] CC:
--- NOTE | 2016-08-21 22:40 | Cardiology Progress Note ---
Assessment/Plan Assessment/Plan The patient is seen and examined, full consult note will be dictated. Objective Last 24 Hour Vital Signs Date Time Temp Pulse Resp B/P Pulse Ox O2 Delivery O2 Flow Rate FiO2 08/21/16 21:34 78 169/93 08/21/16 20:25 187/105 08/21/16 20:00 97.9 77 18 187/105 96 Room Air 08/21/16 16:00 98.1 64 20 150/84 94 Room Air 08/21/16 12:06 78 18 97 08/21/16 12:00 98.1 72 20 143/86 99 Room Air 08/21/16 08:00 99.5 78 18 168/100 99 Room Air 08/21/16 07:05 159/97 08/21/16 04:00 97.0 70 20 159/97 97 Nasal Cannula 08/21/16 00:00 99.0 68 20 152/91 98 Nasal Cannula Intake and Output 08/20/16 08/21/16 19:00 07:00 Intake Total 1030 ml 1007.5 ml Output Total 50 ml 60 ml Balance 980 ml 947.5 ml Intake Oral 0 ml 240 ml IV Total 1030 ml 767.5 ml Output Urine Total 0 ml Drainage Total 60 ml Estimated Blood Loss 50 ml # Bowel Movements 1 Laboratory Tests Test 08/21/16 06:47 White Blood Count 8.7 K/UL (4.8-10.8) # Red Blood Count 4.29 M/UL (4.70-6.10) L Hemoglobin 11.9 G/DL (14.2-18.0) L Hematocrit 37.3 % (42.0-52.0) L Mean Corpuscular Volume 87 FL (80-99) Mean Corpuscular Hemoglobin 27.8 PG (27.0-31.0) Mean Corpuscular Hemoglobin Concent 31.9 G/DL (32.0-36.0) L Red Cell Distribution Width 14.4 % (11.6-14.8) Platelet Count 297 K/UL (150-450) Mean Platelet Volume 6.0 FL (6.5-10.1) L Neutrophils (%) (Auto) 71.9 % (45.0-75.0) Lymphocytes (%) (Auto) 19.7 % (20.0-45.0) L Monocytes (%) (Auto) 7.4 % (1.0-10.0) Eosinophils (%) (Auto) 0.4 % (0.0-3.0) Basophils (%) (Auto) 0.6 % (0.0-2.0) Sodium Level 138 mEQ/L (135-145) Potassium Level 3.9 mEQ/L (3.4-4.9) Chloride Level 99 mEQ/L (98-107) Carbon Dioxide Level 27 mEQ/L (20-30) Anion Gap 12 (5-15) Blood Urea Nitrogen 13 mg/dL (7-23) Creatinine 0.9 mg/dL (0.7-1.2) Estimat Glomerular Filtration Rate > 60 mL/min (>60) Glucose Level 165 mg/dL (74-106) H Calcium Level 8.4 mg/dL (8.6-10.2) CHRISTINA SEN Aug 21, 2016 22:40
[2016-08-22] VITALS: BP 152/91
[2016-08-22] MEDS: Vancomycin 1 GM in D5W 275 ML IVPB SCH ×2 (03:02→16:31)
[2016-08-22 04:00] VITALS: BP 158/98
[2016-08-22] MEDS: Cefepime HCl 1 GM in D5W 55 ML IVPB SCH (05:25)
[2016-08-22] MEDS: metroNIDAZOLE 500mg tab ORAL SCH ×3 (05:25→21:14)
[2016-08-22 06:49] LABS: BASOPHILS % (AUTO) 0.5 % (0.0-2.0); EOSINOPHILS % (AUTO) 1.1 % (0.0-3.0); LYMPHOCYTES % (AUTO) 26.9 % (20.0-45.0); MEAN CORPUSCULAR HEMOGLOBIN 27.9 PG (27.0-31.0); MEAN CORPUSCULAR HGB CONC 32.4 G/DL (32.0-36.0); MEAN CORPUSCULAR VOLUME 86 FL (80-99); MEAN PLATELET VOLUME 6.1 FL (6.5-10.1); MONOCYTES % (AUTO) 8.1 % (1.0-10.0); NEUTROPHILS % (AUTO) 63.4 % (45.0-75.0); PLATELET COUNT 259 K/UL (150-450); RED BLOOD COUNT 3.91 M/UL (4.70-6.10); RED CELL DISTRIBUTION WIDTH 13.7 % (11.6-14.8); WHITE BLOOD COUNT 7.2 K/UL (4.8-10.8)
[2016-08-22 07:03] LABS: ANION GAP 15 (5-15); CALCIUM 8.1 mg/dL (8.6-10.2); CARBON DIOXIDE 26 mEQ/L (20-30); CHLORIDE 101 mEQ/L (98-107); CREATININE 0.8 mg/dL (0.7-1.2); GLOMERULAR FILTRATION RATE > 60 mL/min (>60); HEMOLYSIS 1; POTASSIUM 3.8 mEQ/L (3.4-4.9); SODIUM 142 mEQ/L (135-145)
[2016-08-22 08:00] VITALS: BP 179/106
[2016-08-22] MEDS: Docusate 100mg tablet ORAL SCH ×3 (09:02→17:58)
[2016-08-22] MEDS: celeBREX 200mg Cap **SURGERY PATIENTS ONLY ORAL SCH (09:02)
[2016-08-22] MEDS: oxyCONTIN 20mg tab ORAL SCH ×2 (09:04→21:15)
[2016-08-22] MEDS: Vitamin D 1000 IU Tab ORAL SCH (09:04)
[2016-08-22 12:00] VITALS: BP 147/93
--- NOTE | 2016-08-22 12:29 | General Progress Note ---
Assessment/Plan Problem List: (1) Injury of left thigh ICD Codes: S79.922A - Unspecified injury of left thigh, initial encounter SNOMED: 4163052 (2) Hypertension ICD Codes: I10 - Essential (primary) hypertension SNOMED: 99207967 (3) Laceration ICD Codes: T14.8 - Other injury of unspecified body region SNOMED: 875730819 Status: progressing Assessment/Plan afebrile s/p repair of saw laceration not ready for dc still has pain Subjective ROS Limited/Unobtainable: Yes Constitutional: Reports: no symptoms Allergies: Coded Allergies: No Known Allergies (Unverified , 08/20/16) Objective Last 24 Hour Vital Signs Date Time Temp Pulse Resp B/P Pulse Ox O2 Delivery O2 Flow Rate FiO2 08/22/16 09:03 71 179/106 08/22/16 09:03 71 179/106 08/22/16 08:00 98.2 71 20 179/106 93 Room Air 08/22/16 05:21 158/98 08/22/16 04:00 98.6 65 18 158/98 97 Room Air 08/22/16 00:00 98.6 69 18 152/91 96 Room Air 08/21/16 21:34 78 169/93 08/21/16 20:25 187/105 08/21/16 20:00 97.9 77 18 187/105 96 Room Air 08/21/16 16:00 98.1 64 20 150/84 94 Room Air Intake and Output 08/21/16 08/22/16 19:00 07:00 Intake Total 1907.708 ml 1717.416 ml Output Total 2200 ml 1300 ml Balance -292.292 ml 417.416 ml Intake Oral 840 ml 920 ml IV Total 1067.708 ml 797.416 ml Output Urine Total 2200 ml 1300 ml Laboratory Tests 08/22/16 05:25: White Blood Count 7.2, Red Blood Count 3.91L, Hemoglobin 10.9L, Hematocrit 33.6L , Mean Corpuscular Volume 86, Mean Corpuscular Hemoglobin 27.9, Mean Corpuscular Hemoglobin Concent 32.4, Red Cell Distribution Width 13.7, Platelet Count 259, Mean Platelet Volume 6.1L, Neutrophils (%) (Auto) 63.4, Lymphocytes ( %) (Auto) 26.9, Monocytes (%) (Auto) 8.1, Eosinophils (%) (Auto) 1.1, Basophils (%) (Auto) 0.5, Sodium Level 142, Potassium Level 3.8, Chloride Level 101, Carbon Dioxide Level 26, Anion Gap 15, Blood Urea Nitrogen 9, Creatinine 0.8, Estimat Glomerular Filtration Rate > 60, Glucose Level 155H, Calcium Level 8.1L Height (Feet): 5 Height (Inches): 10.00 Weight (Pounds): 150 EENT: PERRL/EOMI Neck: supple Cardiovascular: regular rhythm Respiratory/Chest: lungs clear Brando Glass MD Aug 22, 2016 12:29
--- NOTE | 2016-08-22 15:24 | Infectious Diseases Prog Note ---
Assessment/Plan Problems: (1) Injury of left thigh Assessment & Plan: with air in the suprapatellar area, continue vancomycin, cefepime and flagyl empirically to cover for possible infection , and await blood culture (2) Laceration of left quadriceps muscle, fascia and tendon, initial encounter Assessment & Plan: S/P surgical repair , will continue wide spectrum antibiotics , monitor culture (3) Hypertension Assessment & Plan: continue meds to keep systolic less than 140 Subjective Constitutional: Reports: no symptoms HEENT: Reports: no symptoms Respiratory: Reports: no symptoms Breasts: Reports: no symptoms Cardiovascular: Reports: no symptoms Gastrointestinal/Abdominal: Reports: no symptoms Genitourinary: Reports: no symptoms Neurologic: Reports: no symptoms Psychiatric: Reports: no symptoms Skin: Reports: no symptoms Musculoskeletal: Reports: pain Allergies: Coded Allergies: No Known Allergies (Unverified , 08/20/16) Objective Vital Signs Last 24 Hour Vital Signs Date Time Temp Pulse Resp B/P Pulse Ox O2 Delivery O2 Flow Rate FiO2 08/22/16 12:00 98.1 59 20 147/93 99 Room Air 08/22/16 09:03 71 179/106 08/22/16 09:03 71 179/106 08/22/16 08:00 98.2 71 20 179/106 93 Room Air 08/22/16 05:21 158/98 08/22/16 04:00 98.6 65 18 158/98 97 Room Air 08/22/16 00:00 98.6 69 18 152/91 96 Room Air 08/21/16 21:34 78 169/93 08/21/16 20:25 187/105 08/21/16 20:00 97.9 77 18 187/105 96 Room Air 08/21/16 16:00 98.1 64 20 150/84 94 Room Air Height (Feet): 5 Height (Inches): 10.00 Weight (Pounds): 150 General Appearance: WD/WN, no acute distress HEENT: normocephalic, atraumatic, anicteric, mucous membranes moist Respiratory/Chest: chest wall non-tender, lungs clear, normal breath sounds, no respiratory distress, no accessory muscle use Cardiovascular: normal peripheral pulses, normal rate, regular rhythm, no JVD Abdomen: normal bowel sounds, soft, non tender, no organomegaly, non distended , no mass Extremities: no cyanosis, no clubbing Skin: no rash, no lesions Musculoskeletal: normal muscle bulk, other - left thigh surgical wound , covered with bandage and dressing Laboratory Tests Test 08/22/16 05:25 White Blood Count 7.2 K/UL (4.8-10.8) Red Blood Count 3.91 M/UL (4.70-6.10) L Hemoglobin 10.9 G/DL (14.2-18.0) L Hematocrit 33.6 % (42.0-52.0) L Mean Corpuscular Volume 86 FL (80-99) Mean Corpuscular Hemoglobin 27.9 PG (27.0-31.0) Mean Corpuscular Hemoglobin Concent 32.4 G/DL (32.0-36.0) Red Cell Distribution Width 13.7 % (11.6-14.8) Platelet Count 259 K/UL (150-450) Mean Platelet Volume 6.1 FL (6.5-10.1) L Neutrophils (%) (Auto) 63.4 % (45.0-75.0) Lymphocytes (%) (Auto) 26.9 % (20.0-45.0) Monocytes (%) (Auto) 8.1 % (1.0-10.0) Eosinophils (%) (Auto) 1.1 % (0.0-3.0) Basophils (%) (Auto) 0.5 % (0.0-2.0) Sodium Level 142 mEQ/L (135-145) Potassium Level 3.8 mEQ/L (3.4-4.9) Chloride Level 101 mEQ/L (98-107) Carbon Dioxide Level 26 mEQ/L (20-30) Anion Gap 15 (5-15) Blood Urea Nitrogen 9 mg/dL (7-23) Creatinine 0.8 mg/dL (0.7-1.2) Estimat Glomerular Filtration Rate > 60 mL/min (>60) Glucose Level 155 mg/dL (74-106) H Calcium Level 8.1 mg/dL (8.6-10.2) L Current Medications Medications (Trade) Dose Ordered Sig/[place] Route PRN Reason Start Time Stop Time Status Last Admin Dose Admin Acetaminophen (Tylenol) 650 mg Q6H PRN ORAL Mild Pain/Temp > 100.5 08/20/16 14:45 09/19/16 14:44 Acetaminophen/ Hydrocodone Bitart 1 tab 1 tab Q4H PRN ORAL Mild Pain (Pain Scale 1-3) 08/21/16 06:45 08/28/16 06:44 Amlodipine Besylate 5 mg 5 mg DAILY ORAL 08/22/16 09:00 09/21/16 08:59 08/22/16 09:03 Cefepime HCl/ Sodium Chloride (Maxipime/Sodium Chloride) 55 ml @ 110 mls/hr Q12HR@0600,1800 IVPB 08/22/16 18:00 08/29/16 17:59 Celecoxib (CeleBREX) 200 mg DAILY ORAL 08/21/16 09:00 09/20/16 08:59 08/22/16 09:02 Clonidine HCl (Catapres) 0.1 mg Q4H PRN ORAL SBP>160, DBP>90 08/20/16 13:15 09/19/16 13:14 08/22/16 05:21 Docusate Sodium (Colace) 100 mg THREE TIMES A DAY ORAL 08/20/16 18:00 09/19/16 17:59 08/22/16 13:07 Hydromorphone HCl (Dilaudid) 0.5 mg Q4H PRN SUBQ Mild Pain (Pain Scale 1-3) 08/20/16 14:45 08/27/16 14:44 Hydromorphone HCl (Dilaudid) 1 mg Q3H PRN SUBQ Moderate Pain (Pain Scale 4-6) 08/20/16 14:45 08/27/16 14:44 Hydromorphone HCl (Dilaudid) 2 mg Q2H PRN SUBQ Severe Pain (Pain Scale 7-10) 08/20/16 14:45 08/27/16 14:44 Metoprolol Succinate (Toprol XL) 25 mg DAILY ORAL 08/22/16 09:00 09/21/16 08:59 08/22/16 09:03 Metronidazole (Flagyl) 500 mg Q8HR ORAL 08/21/16 14:00 08/28/16 13:59 08/22/16 14:16 Ondansetron HCl (Zofran) 4 mg Q6H PRN IVP Nausea & Vomiting 08/20/16 14:45 09/19/16 14:44 Oxycodone HCl (OxyCONTIN) 20 mg EVERY 12 HOURS ORAL 08/20/16 21:00 08/27/16 20:59 08/22/16 09:04 Temazepam (Restoril) 7.5 mg HSPRN PRN ORAL Insomnia 08/20/16 14:45 08/27/16 14:44 Vancomycin HCl/ Dextrose (Vancomycin/D5W) 275 ml @ 183.708 mls/hr Q12HR@0400,1600 IVPB 08/21/16 16:00 08/26/16 15:59 08/22/16 03:02 Vitamin D (Vitamin D) 1,000 intlu DAILY ORAL 08/21/16 09:00 09/20/16 08:59 08/22/16 09:04 Momo Cho M.D. Aug 22, 2016 15:24
[2016-08-22 16:20] VITALS: BP 144/81
[2016-08-22] MEDS ORDERED: D5 1/2NS 1000ml IV ONE (17:16)
[2016-08-22] MEDS ORDERED: Tubing IV Secondary IV ONE (17:16)
[2016-08-22] MEDS: Cefepime HCl 1 GM in NS 55 ML IVPB SCH (17:57)
[2016-08-22 20:00] VITALS: BP 152/89
--- NOTE | 2016-08-22 22:08 | Cardiology Progress Note ---
Assessment/Plan Assessment/Plan 1. Accelerated HTN, increase amlodipine to 5mg po bid, will continue to monitor BP, pain control. 2. s/p Quad tendon repair and left knee arthrotomy POD #2 Subjective Subjective No cardiac events. POD #2 Objective Last 24 Hour Vital Signs Date Time Temp Pulse Resp B/P Pulse Ox O2 Delivery O2 Flow Rate FiO2 08/22/16 20:00 98.2 62 19 152/89 95 Room Air 08/22/16 16:20 97.7 55 18 144/81 100 Room Air 08/22/16 12:00 98.1 59 20 147/93 99 Room Air 08/22/16 09:03 71 179/106 08/22/16 09:03 71 179/106 08/22/16 08:00 98.2 71 20 179/106 93 Room Air 08/22/16 05:21 158/98 08/22/16 04:00 98.6 65 18 158/98 97 Room Air 08/22/16 00:00 98.6 69 18 152/91 96 Room Air Intake and Output 08/21/16 08/22/16 19:00 07:00 Intake Total 1907.708 ml 1717.416 ml Output Total 2200 ml 1300 ml Balance -292.292 ml 417.416 ml Intake Oral 840 ml 920 ml IV Total 1067.708 ml 797.416 ml Output Urine Total 2200 ml 1300 ml Laboratory Tests Test 08/22/16 05:25 White Blood Count 7.2 K/UL (4.8-10.8) Red Blood Count 3.91 M/UL (4.70-6.10) L Hemoglobin 10.9 G/DL (14.2-18.0) L Hematocrit 33.6 % (42.0-52.0) L Mean Corpuscular Volume 86 FL (80-99) Mean Corpuscular Hemoglobin 27.9 PG (27.0-31.0) Mean Corpuscular Hemoglobin Concent 32.4 G/DL (32.0-36.0) Red Cell Distribution Width 13.7 % (11.6-14.8) Platelet Count 259 K/UL (150-450) Mean Platelet Volume 6.1 FL (6.5-10.1) L Neutrophils (%) (Auto) 63.4 % (45.0-75.0) Lymphocytes (%) (Auto) 26.9 % (20.0-45.0) Monocytes (%) (Auto) 8.1 % (1.0-10.0) Eosinophils (%) (Auto) 1.1 % (0.0-3.0) Basophils (%) (Auto) 0.5 % (0.0-2.0) Sodium Level 142 mEQ/L (135-145) Potassium Level 3.8 mEQ/L (3.4-4.9) Chloride Level 101 mEQ/L (98-107) Carbon Dioxide Level 26 mEQ/L (20-30) Anion Gap 15 (5-15) Blood Urea Nitrogen 9 mg/dL (7-23) Creatinine 0.8 mg/dL (0.7-1.2) Estimat Glomerular Filtration Rate > 60 mL/min (>60) Glucose Level 155 mg/dL (74-106) H Calcium Level 8.1 mg/dL (8.6-10.2) L Objective HEENT: Normocephalic and atraumatic. Pupils both reactive to light. Dry oral mucosa. NECK: No JVD, no carotid bruit, carotid upstroke 2+ B/L CARDIOVASCULAR: Regular rate and rhythm. No murmurs, gallops or rubs, normal S1S2 LUNGS: Clear bilaterally. ABDOMEN: Soft, nontender, and nondistended. Positive bowel sounds. No hepatosplenomegaly or ascites. EXTREMITIES: No edema,clubbing or cyanosis. Left knee covered with dressing and bandage. CHRISTINA ARREOLA Aug 22, 2016 22:08
[2016-08-23] VITALS (8 sets, daily range): BP systolic 129–176; BP diastolic 60–102
[2016-08-23 03:27] LABS: ANION GAP 15 (5-15); CALCIUM 8.7 mg/dL (8.6-10.2); CARBON DIOXIDE 24 mEQ/L (20-30); CHLORIDE 101 mEQ/L (98-107); CREATININE 0.8 mg/dL (0.7-1.2); GLOMERULAR FILTRATION RATE > 60 mL/min (>60); HEMOLYSIS 2; SODIUM 140 mEQ/L (135-145)
[2016-08-23 03:30] LABS: BASOPHILS % (AUTO) 0.6 % (0.0-2.0); EOSINOPHILS % (AUTO) 1.3 % (0.0-3.0); LYMPHOCYTES % (AUTO) 16.9 % (20.0-45.0); MEAN CORPUSCULAR HEMOGLOBIN 27.9 PG (27.0-31.0); MEAN CORPUSCULAR VOLUME 87 FL (80-99); MEAN PLATELET VOLUME 6.5 FL (6.5-10.1); MONOCYTES % (AUTO) 5.8 % (1.0-10.0); NEUTROPHILS % (AUTO) 75.4 % (45.0-75.0); PLATELET COUNT 285 K/UL (150-450); RED BLOOD COUNT 3.85 M/UL (4.70-6.10); RED CELL DISTRIBUTION WIDTH 14.3 % (11.6-14.8); WHITE BLOOD COUNT 7.1 K/UL (4.8-10.8)
[2016-08-23] MEDS: Vancomycin 1 GM in D5W 275 ML IVPB SCH (03:40)
[2016-08-23] MEDS: Cefepime HCl 1 GM in NS 55 ML IVPB SCH ×2 (05:35→17:26)
[2016-08-23] MEDS: metroNIDAZOLE 500mg tab ORAL SCH ×3 (05:40→21:29)
[2016-08-23] MEDS: oxyCONTIN 20mg tab ORAL SCH ×2 (08:25→21:30)
[2016-08-23] MEDS: Vitamin D 1000 IU Tab ORAL SCH (08:26)
[2016-08-23] MEDS: celeBREX 200mg Cap **SURGERY PATIENTS ONLY ORAL SCH (08:27)
[2016-08-23] MEDS: Docusate 100mg tablet ORAL SCH ×3 (08:27→17:25)
[2016-08-23] MEDS: Vancomycin 1250mg in D5W 275ml IVPB SCH (12:38)
--- NOTE | 2016-08-23 14:24 | General Progress Note ---
Assessment/Plan Problem List: (1) Injury of left thigh ICD Codes: S79.922A - Unspecified injury of left thigh, initial encounter SNOMED: 3711237 (2) Hypertension ICD Codes: I10 - Essential (primary) hypertension SNOMED: 12427797 (3) Laceration ICD Codes: T14.8 - Other injury of unspecified body region SNOMED: 890938053 Assessment/Plan reviewed chart and labs s/p repair of saw laceration not ready for dc still has pain Subjective ROS Limited/Unobtainable: Yes Allergies: Coded Allergies: No Known Allergies (Unverified , 08/20/16) Objective Last 24 Hour Vital Signs Date Time Temp Pulse Resp B/P Pulse Ox O2 Delivery O2 Flow Rate FiO2 08/23/16 12:00 97.9 59 20 148/93 97 Room Air 08/23/16 08:26 64 158/102 08/23/16 08:26 64 158/102 08/23/16 08:10 162/96 08/23/16 08:00 98.1 64 20 158/102 96 Room Air 08/23/16 04:00 98.2 62 20 129/60 95 Room Air 08/23/16 00:00 98.1 59 20 158/86 96 Room Air 08/22/16 23:00 62 152/89 08/22/16 20:00 98.2 62 19 152/89 95 Room Air 08/22/16 16:20 97.7 55 18 144/81 100 Room Air Intake and Output 08/22/16 08/23/16 19:00 07:00 Intake Total 1035 ml 240 ml Output Total 800 ml Balance 235 ml 240 ml Intake Oral 760 ml 240 ml IV Total 275 ml Output Urine Total 800 ml # Voids 2 Laboratory Tests 08/23/16 02:50: White Blood Count 7.1, Red Blood Count 3.85L, Hemoglobin 10.7L, Hematocrit 33.5L , Mean Corpuscular Volume 87, Mean Corpuscular Hemoglobin 27.9, Mean Corpuscular Hemoglobin Concent 32.0, Red Cell Distribution Width 14.3, Platelet Count 285, Mean Platelet Volume 6.5, Neutrophils (%) (Auto) 75.4H, Lymphocytes ( %) (Auto) 16.9L, Monocytes (%) (Auto) 5.8, Eosinophils (%) (Auto) 1.3, Basophils (%) (Auto) 0.6, Sodium Level 140, Potassium Level 4.0, Chloride Level 101, Carbon Dioxide Level 24, Anion Gap 15, Blood Urea Nitrogen 8, Creatinine 0.8, Estimat Glomerular Filtration Rate > 60, Glucose Level 268#H, Calcium Level 8.7, Vancomycin Level Trough 7.1 Height (Feet): 5 Height (Inches): 10.00 Weight (Pounds): 150 Neck: supple Cardiovascular: normal rate Abdomen: soft Brando Glass MD Aug 23, 2016 14:24
--- NOTE | 2016-08-23 15:02 | Infectious Diseases Prog Note ---
Assessment/Plan Problems: (1) Injury of left thigh Assessment & Plan: with air in the suprapatellar area, continue vancomycin, cefepime and flagyl empirically to cover for possible infection , and await blood culture (2) Laceration of left quadriceps muscle, fascia and tendon, initial encounter Assessment & Plan: S/P surgical repair , will continue wide spectrum antibiotics , monitor culture (3) Hypertension Assessment & Plan: continue meds to keep systolic less than 140 Subjective Constitutional: Reports: no symptoms HEENT: Reports: no symptoms Respiratory: Reports: no symptoms Breasts: Reports: no symptoms Cardiovascular: Reports: no symptoms Gastrointestinal/Abdominal: Reports: no symptoms Genitourinary: Reports: no symptoms Neurologic: Reports: no symptoms Psychiatric: Reports: no symptoms Skin: Reports: no symptoms Endocrine: Reports: no symptoms Allergies: Coded Allergies: No Known Allergies (Unverified , 08/20/16) Objective Vital Signs Last 24 Hour Vital Signs Date Time Temp Pulse Resp B/P Pulse Ox O2 Delivery O2 Flow Rate FiO2 08/23/16 12:00 97.9 59 20 148/93 97 Room Air 08/23/16 08:26 64 158/102 08/23/16 08:26 64 158/102 08/23/16 08:10 162/96 08/23/16 08:00 98.1 64 20 158/102 96 Room Air 08/23/16 04:00 98.2 62 20 129/60 95 Room Air 08/23/16 00:00 98.1 59 20 158/86 96 Room Air 08/22/16 23:00 62 152/89 08/22/16 20:00 98.2 62 19 152/89 95 Room Air 08/22/16 16:20 97.7 55 18 144/81 100 Room Air Height (Feet): 5 Height (Inches): 10.00 Weight (Pounds): 150 General Appearance: WD/WN, no acute distress HEENT: normocephalic, atraumatic, anicteric, mucous membranes moist Respiratory/Chest: chest wall non-tender, lungs clear, normal breath sounds, no respiratory distress, no accessory muscle use Cardiovascular: normal peripheral pulses, normal rate, regular rhythm Abdomen: normal bowel sounds, soft, non tender, no organomegaly, non distended , no mass Extremities: no cyanosis, no clubbing, other - left thigh surgical wound above the left knee , covered with dressing Microbiology Date/Time Source Procedure Growth Status 08/21/16 19:15 Blood Blood Culture - Preliminary NO GROWTH AFTER 24 HOURS Resulted 08/21/16 19:00 Blood Blood Culture - Preliminary NO GROWTH AFTER 24 HOURS Resulted Laboratory Tests Test 08/23/16 02:50 White Blood Count 7.1 K/UL (4.8-10.8) Red Blood Count 3.85 M/UL (4.70-6.10) L Hemoglobin 10.7 G/DL (14.2-18.0) L Hematocrit 33.5 % (42.0-52.0) L Mean Corpuscular Volume 87 FL (80-99) Mean Corpuscular Hemoglobin 27.9 PG (27.0-31.0) Mean Corpuscular Hemoglobin Concent 32.0 G/DL (32.0-36.0) Red Cell Distribution Width 14.3 % (11.6-14.8) Platelet Count 285 K/UL (150-450) Mean Platelet Volume 6.5 FL (6.5-10.1) Neutrophils (%) (Auto) 75.4 % (45.0-75.0) H Lymphocytes (%) (Auto) 16.9 % (20.0-45.0) L Monocytes (%) (Auto) 5.8 % (1.0-10.0) Eosinophils (%) (Auto) 1.3 % (0.0-3.0) Basophils (%) (Auto) 0.6 % (0.0-2.0) Sodium Level 140 mEQ/L (135-145) Potassium Level 4.0 mEQ/L (3.4-4.9) Chloride Level 101 mEQ/L (98-107) Carbon Dioxide Level 24 mEQ/L (20-30) Anion Gap 15 (5-15) Blood Urea Nitrogen 8 mg/dL (7-23) Creatinine 0.8 mg/dL (0.7-1.2) Estimat Glomerular Filtration Rate > 60 mL/min (>60) Glucose Level 268 mg/dL (74-106) #H Calcium Level 8.7 mg/dL (8.6-10.2) Vancomycin Level Trough 7.1 ug/mL (5.0-12.0) Current Medications Medications (Trade) Dose Ordered Sig/[place] Route PRN Reason Start Time Stop Time Status Last Admin Dose Admin Acetaminophen (Tylenol) 650 mg Q6H PRN ORAL Mild Pain/Temp > 100.5 08/20/16 14:45 09/19/16 14:44 Acetaminophen/ Hydrocodone Bitart ([place] 5/325) 1 tab Q4H PRN ORAL Mild Pain (Pain Scale 1-3) 08/21/16 06:45 08/28/16 06:44 Amlodipine Besylate 5 mg 5 mg BID ORAL 08/23/16 09:00 09/22/16 08:59 08/23/16 08:26 Cefepime HCl/ Sodium Chloride (Maxipime/Sodium Chloride) 55 ml @ 110 mls/hr Q12HR@0600,1800 IVPB 08/22/16 18:00 08/29/16 17:59 08/23/16 05:35 Celecoxib (CeleBREX) 200 mg DAILY ORAL 08/21/16 09:00 09/20/16 08:59 08/23/16 08:27 Clonidine HCl (Catapres) 0.1 mg Q4H PRN ORAL SBP>160, DBP>90 08/20/16 13:15 09/19/16 13:14 08/22/16 05:21 Docusate Sodium (Colace) 100 mg THREE TIMES A DAY ORAL 08/20/16 18:00 09/19/16 17:59 08/23/16 12:37 Hydromorphone HCl (Dilaudid) 0.5 mg Q4H PRN SUBQ Mild Pain (Pain Scale 1-3) 08/20/16 14:45 08/27/16 14:44 Hydromorphone HCl (Dilaudid) 1 mg Q3H PRN SUBQ Moderate Pain (Pain Scale 4-6) 08/20/16 14:45 08/27/16 14:44 Hydromorphone HCl (Dilaudid) 2 mg Q2H PRN SUBQ Severe Pain (Pain Scale 7-10) 08/20/16 14:45 08/27/16 14:44 Metoprolol Succinate 25 mg 25 mg DAILY ORAL 08/22/16 09:00 09/21/16 08:59 08/23/16 08:26 Metronidazole (Flagyl) 500 mg Q8HR ORAL 08/21/16 14:00 08/28/16 13:59 08/23/16 13:48 Ondansetron HCl (Zofran) 4 mg Q6H PRN IVP Nausea & Vomiting 08/20/16 14:45 09/19/16 14:44 Oxycodone HCl (OxyCONTIN) 20 mg EVERY 12 HOURS ORAL 08/20/16 21:00 08/27/16 20:59 08/23/16 08:25 Temazepam (Restoril) 7.5 mg HSPRN PRN ORAL Insomnia 08/20/16 14:45 08/27/16 14:44 Vancomycin HCl (Vanco rx to dose) 1 ea DAILY PRN MISC PER RX PROTOCOL 08/22/16 17:00 09/21/16 16:59 Vancomycin HCl/ Dextrose (Vancomycin/D5W) 275 ml @ 183.708 mls/hr Q12H IVPB 08/23/16 13:00 08/28/16 12:59 08/23/16 12:38 Vitamin D (Vitamin D) 1,000 intlu DAILY ORAL 08/21/16 09:00 09/20/16 08:59 08/23/16 08:26 Momo Cho M.D. Aug 23, 2016 15:02
--- NOTE | 2016-08-23 16:13 | Consultation ---
Consult Note Consult Note DATE OF CONSULTATION: 08/23/16 HEMATOLOGY CONSULTATION CONSULTING PHYSICIAN: Brad Reyes M.D. REQUESTING PHYSICIAN: Brando Glass M.D. 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 The patient notes that deep skin cut above his left knee on the anterior medial aspect. He started bleeding and he tied his thigh to stop the bleeding. The patient was brought into the emergency room byparamedics after he had a large amount of bleeding from the left thigh. His temperature was 98.2 degrees and saturating 99% on room air. X-ray of the left knee showed gap in the subcutaneous tissue in the anterior suprapatellar region extending into the knee joint, but no evidence of fracture. The patient was taken to the operating room by Dr. Matthews and he had left quadriceps tendon irrigation and debridement with incision and drainage of the left knee joint and he was started on cefazolin and I was consulted by the primary provider for antibiotics recommendation and further treatment. Anemia was noted, and hematology consult was placed, hgb currently downtrending , hgb is at 10.7 PAST MEDICAL HISTORY: Negative. PAST SURGICAL HISTORY: Negative. SOCIAL HISTORY: The patient is single. Denies using any drugs, tobacco, or alcohol. He works in construction. MEDICATIONS: cefazolin 1 g IV q.8 hours. For the rest of his medications, please refer to [facility]. ALLERGIES: He has no known drug allergy. REVIEW OF SYSTEMS: A 12-point of system reviewed were all negative apart from the one I mentioned above in my History and Physical. PHYSICAL EXAMINATION: VITAL SIGNS: Reviewed is stable GENERAL: A middle-aged, Maori speaking, laying in bed, awake, alert, and not in distress. HEENT: Normocephalic and atraumatic. Pupils both reactive to light. Dry oral mucosa. No exudate. NECK: Supple. No lymphadenopathy. CARDIOVASCULAR: Regular rate and rhythm. No murmur. No gallop. LUNGS: Clear bilaterally. No wheezing or rhonchi. ABDOMEN: Soft, nontender, and nondistended. Positive bowel sounds. No hepatosplenomegaly or ascites. EXTREMITIES: No edema or cyanosis. Left knee with dressing and bandage. LABORATORY DATA: Labs showed white count of 8.7, hemoglobin of 11.9, and platelet count of 297,000. BUN of 12 and creatinine of 0.9. IMAGING: Knee x-ray showed soft tissue and intraarticular and subcutaneous gas with few small remaining subcutaneous gas bubble. Patella remain normally aligned. ASSESSMENT: # Anemia 2/2 chronic disease - hgb is currently at 10.7, will send off anemia w/ u as well as stool guiac studies # Left [id number] soft tissue injury with air in the suprapatellar area, suspect soft tissue infection. On abx as per ID service # Laceration of the left quadriceps muscle fascia and tendon status post surgical debridement and wash out. # Hypertension. Continue blood pressure medications RECS: - Anemia w/u has been ordered - Appreciate surgical and ID recs - Nutritional support and skin care - ABX as per ID service - F/U on occult blood stool - DVT ppx with heparin sq - Pain control - Follow from heme perspective Brad Reyes Aug 23, 2016 16:13
[2016-08-23 18:33] LABS: BAND NEUTROPHILS % (MANUAL) 1 % (0-8); BASOPHILS % (MANUAL) 1 % (0-2); EOSINOPHILS % (MANUAL) 2 % (0-3); LYMPHOCYTES % (MANUAL) 22 % (20-45); NEUTROPHILS % (MANUAL) 70 % (45-75); PATH BLOOD SMEAR/OMC SENT TO PATHOLOGIST
--- NOTE | 2016-08-23 18:33 | Cardiology Report ---
APPROVED REPORT EKG Measurement Heart [id number] Normal sinus rhythm Voltage criteria for left ventricular hypertrophy Abnormal ECG
[2016-08-23 18:42] LABS: PLATELET ESTIMATE ADEQUATE; PLATELET MORPHOLOGY NORMAL
[2016-08-24] MEDS: Vancomycin 1250mg in D5W 275ml IVPB SCH ×2 (01:20→13:35)
[2016-08-24 04:00] VITALS: BP 139/89
[2016-08-24] MEDS: Cefepime HCl 1 GM in NS 55 ML IVPB SCH ×2 (05:50→18:42)
[2016-08-24] MEDS: metroNIDAZOLE 500mg tab ORAL SCH ×3 (05:51→21:21)
[2016-08-24 08:00] VITALS: BP 158/95
[2016-08-24] MEDS: oxyCONTIN 20mg tab ORAL SCH ×2 (09:00→21:00)
[2016-08-24] MEDS: celeBREX 200mg Cap **SURGERY PATIENTS ONLY ORAL SCH (09:00)
[2016-08-24] MEDS: Docusate 100mg tablet ORAL SCH ×3 (09:05→18:42)
[2016-08-24] MEDS: Vitamin D 1000 IU Tab ORAL SCH (09:08)
[2016-08-24 12:00] VITALS: BP 142/88
--- NOTE | 2016-08-24 12:51 | General Progress Note ---
Assessment/Plan Problem List: (1) Injury of left thigh ICD Codes: S79.922A - Unspecified injury of left thigh, initial encounter SNOMED: 9422407 (2) Hypertension ICD Codes: I10 - Essential (primary) hypertension SNOMED: 40625202 (3) Laceration ICD Codes: T14.8 - Other injury of unspecified body region SNOMED: 665459320 Status: progressing Assessment/Plan reviewed chart and labs s/p repair of saw lacerat still has siginifcant pain at oper ation site Subjective ROS Limited/Unobtainable: Yes Allergies: Coded Allergies: No Known Allergies (Unverified , 08/20/16) Subjective pain at surgical site Objective Last 24 Hour Vital Signs Date Time Temp Pulse Resp B/P Pulse Ox O2 Delivery O2 Flow Rate FiO2 08/24/16 12:00 98.7 63 18 142/88 98 Room Air 08/24/16 09:09 65 158/95 08/24/16 09:03 62 158/95 08/24/16 08:00 98.2 64 18 158/95 97 Room Air 08/24/16 04:00 97.5 64 16 139/89 95 Room Air 08/23/16 22:55 59 137/84 08/23/16 19:47 176/93 08/23/16 19:43 98.1 58 18 176/93 98 Room Air 08/23/16 17:25 59 151/92 08/23/16 16:00 97.9 59 20 151/92 93 Room Air Intake and Output 08/23/16 08/24/16 19:00 07:00 Intake Total 1050 ml 340 ml Balance 1050 ml 340 ml Intake Oral 720 ml 340 ml IV Total 330 ml # Voids 4 2 Laboratory Tests 08/23/16 17:00: Reticulocyte Count 1.2, Iron Level 34L, Total Iron Binding Capacity 342, Percent Iron Saturation 10L, Unsaturated Iron Binding 308, Ferritin 30, Total Bilirubin 0.3, Vitamin B12 Level 284, Folate [Pending] Height (Feet): 5 Height (Inches): 10.00 Weight (Pounds): 150 Cardiovascular: normal rate Abdomen: non tender Brando Glass MD Aug 24, 2016 12:51
[2016-08-24 16:00] VITALS: BP 147/83
--- NOTE | 2016-08-24 17:01 | General Progress Note ---
Assessment/Plan Assessment/Plan ASSESSMENT: # Anemia 2/2 chronic disease - hgb is currently at 10.7, will send off anemia w/ u as well as stool guiac studies # Left [id number] soft tissue injury with air in the suprapatellar area, suspect soft tissue infection. On abx as per ID service # Laceration of the left quadriceps muscle fascia and tendon status post surgical debridement and wash out. # Hypertension. Continue blood pressure medications RECS: - Anemia w/u has been ordered - Appreciate surgical and ID recs - Nutritional support and skin care - ABX as per ID service - F/U on occult blood stool - DVT ppx with heparin sq - Pain control - Follow from heme perspective Scott Reyes M.D. Aug 23, 2016 16:13 Subjective Constitutional: Reports: no symptoms HEENT: Reports: no symptoms Cardiovascular: Reports: no symptoms Respiratory: Reports: no symptoms Gastrointestinal/Abdominal: Reports: no symptoms Genitourinary: Reports: no symptoms Neurologic/Psychiatric: Reports: no symptoms Endocrine: Reports: no symptoms Hematologic/Lymphatic: Reports: no symptoms Allergies: Coded Allergies: No Known Allergies (Unverified , 08/20/16) Objective Last 24 Hour Vital Signs Date Time Temp Pulse Resp B/P Pulse Ox O2 Delivery O2 Flow Rate FiO2 08/24/16 16:00 97.9 61 20 147/83 99 Room Air 08/24/16 12:00 98.7 63 18 142/88 98 Room Air 08/24/16 09:09 65 158/95 08/24/16 09:03 62 158/95 08/24/16 08:00 98.2 64 18 158/95 97 Room Air 08/24/16 04:00 97.5 64 16 139/89 95 Room Air 08/23/16 22:55 59 137/84 08/23/16 19:47 176/93 08/23/16 19:43 98.1 58 18 176/93 98 Room Air 08/23/16 17:25 59 151/92 Intake and Output 08/23/16 08/24/16 19:00 07:00 Intake Total 1050 ml 340 ml Balance 1050 ml 340 ml Intake Oral 720 ml 340 ml IV Total 330 ml # Voids 4 2 Laboratory Tests 08/23/16 17:00: Reticulocyte Count 1.2, Iron Level 34L, Total Iron Binding Capacity 342, Percent Iron Saturation 10L, Unsaturated Iron Binding 308, Ferritin 30, Total Bilirubin 0.3, Vitamin B12 Level 284, Folate 6.6 Height (Feet): 5 Height (Inches): 10.00 Weight (Pounds): 150 General Appearance: no apparent distress EENT: normal ENT inspection Neck: supple Cardiovascular: normal rate Respiratory/Chest: lungs clear Abdomen: soft Pelvis: no masses Extremities: non-tender Edema: no edema noted Arm (L), no edema noted Arm (R), no edema noted Leg (L), no edema noted Leg (R), no edema noted Pedal (L), no edema noted Pedal (R), no edema noted Generalized Neurologic: oriented x 3 Skin: warm/dry Lymphatic: normal anterior cervical (L), normal anterior cervical (R), normal axillary (L), normal axillary (R), normal inguinal (L), normal inguinal (R), normal other, normal posterior cervical (L), normal posterior cervical (R), normal submandibular (L), normal submandibular (R), normal supraclavicular (L), normal supraclavicular (R) SCOTT REYES Aug 24, 2016 17:01
[2016-08-24 20:00] VITALS: BP 152/85
--- NOTE | 2016-08-24 22:03 | Infectious Diseases Prog Note ---
Assessment/Plan Problems: (1) Injury of left thigh Assessment & Plan: with air in the suprapatellar area, continue vancomycin, cefepime and flagyl empirically to cover for possible infection , and await blood culture (2) Laceration of left quadriceps muscle, fascia and tendon, initial encounter Assessment & Plan: S/P surgical repair , will continue wide spectrum antibiotics , pending culture results (3) Hypertension Assessment & Plan: continue meds to keep systolic less than 140 Subjective Constitutional: Reports: no symptoms HEENT: Reports: no symptoms Respiratory: Reports: no symptoms Breasts: Reports: no symptoms Cardiovascular: Reports: no symptoms Gastrointestinal/Abdominal: Reports: no symptoms Genitourinary: Reports: no symptoms Neurologic: Reports: no symptoms Psychiatric: Reports: no symptoms Skin: Reports: no symptoms Musculoskeletal: Reports: pain Allergies: Coded Allergies: No Known Allergies (Unverified , 08/20/16) Objective Vital Signs Last 24 Hour Vital Signs Date Time Temp Pulse Resp B/P Pulse Ox O2 Delivery O2 Flow Rate FiO2 08/24/16 20:00 98.2 78 20 152/85 98 Room Air 08/24/16 18:42 61 147/83 08/24/16 16:00 97.9 61 20 147/83 99 Room Air 08/24/16 12:00 98.7 63 18 142/88 98 Room Air 08/24/16 09:09 65 158/95 08/24/16 09:03 62 158/95 08/24/16 08:00 98.2 64 18 158/95 97 Room Air 08/24/16 04:00 97.5 64 16 139/89 95 Room Air 08/23/16 22:55 59 137/84 Height (Feet): 5 Height (Inches): 10.00 Weight (Pounds): 150 General Appearance: WD/WN, no acute distress HEENT: normocephalic, atraumatic, anicteric, mucous membranes moist Respiratory/Chest: chest wall non-tender, lungs clear, normal breath sounds, no respiratory distress, no accessory muscle use Cardiovascular: normal peripheral pulses, normal rate, regular rhythm, no gallop/murmur, no JVD Abdomen: normal bowel sounds, soft, non tender, no organomegaly, non distended , no mass Extremities: no cyanosis, no clubbing, other - left thigh surgical wound covered with dressing Skin: no rash, no lesions Current Medications Medications (Trade) Dose Ordered Sig/[place] Route PRN Reason Start Time Stop Time Status Last Admin Dose Admin Acetaminophen (Tylenol) 650 mg Q6H PRN ORAL Mild Pain/Temp > 100.5 08/20/16 14:45 09/19/16 14:44 Acetaminophen/ Hydrocodone Bitart ([place] 5/325) 1 tab Q4H PRN ORAL Mild Pain (Pain Scale 1-3) 08/21/16 06:45 08/28/16 06:44 Amlodipine Besylate 5 mg 5 mg BID ORAL 08/23/16 09:00 09/22/16 08:59 08/24/16 18:42 Cefepime HCl/ Sodium Chloride (Maxipime/Sodium Chloride) 55 ml @ 110 mls/hr Q12HR@0600,1800 IVPB 08/22/16 18:00 08/29/16 17:59 08/24/16 18:42 Celecoxib (CeleBREX) 200 mg DAILY ORAL 08/21/16 09:00 09/20/16 08:59 08/23/16 08:27 Clonidine HCl (Catapres) 0.1 mg Q4H PRN ORAL SBP>160, DBP>90 08/20/16 13:15 09/19/16 13:14 08/23/16 19:47 Docusate Sodium (Colace) 100 mg THREE TIMES A DAY ORAL 08/20/16 18:00 09/19/16 17:59 08/24/16 18:42 Hydromorphone HCl (Dilaudid) 0.5 mg Q4H PRN SUBQ Mild Pain (Pain Scale 1-3) 08/20/16 14:45 08/27/16 14:44 Hydromorphone HCl (Dilaudid) 1 mg Q3H PRN SUBQ Moderate Pain (Pain Scale 4-6) 08/20/16 14:45 08/27/16 14:44 Hydromorphone HCl (Dilaudid) 2 mg Q2H PRN SUBQ Severe Pain (Pain Scale 7-10) 08/20/16 14:45 08/27/16 14:44 Metoprolol Succinate 25 mg 25 mg DAILY ORAL 08/22/16 09:00 09/21/16 08:59 08/24/16 09:09 Metronidazole (Flagyl) 500 mg Q8HR ORAL 08/21/16 14:00 08/28/16 13:59 08/24/16 21:21 Ondansetron HCl (Zofran) 4 mg Q6H PRN IVP Nausea & Vomiting 08/20/16 14:45 09/19/16 14:44 Oxycodone HCl (OxyCONTIN) 20 mg EVERY 12 HOURS ORAL 08/20/16 21:00 08/27/16 20:59 08/23/16 21:30 Temazepam (Restoril) 7.5 mg HSPRN PRN ORAL Insomnia 08/20/16 14:45 08/27/16 14:44 Vancomycin HCl (Vanco rx to dose) 1 ea DAILY PRN MISC PER RX PROTOCOL 08/22/16 17:00 09/21/16 16:59 Vancomycin HCl/ Dextrose (Vancomycin/D5W) 275 ml @ 183.708 mls/hr Q12H IVPB 08/23/16 13:00 08/28/16 12:59 08/24/16 13:35 Vitamin D (Vitamin D) 1,000 intlu DAILY ORAL 08/21/16 09:00 09/20/16 08:59 08/24/16 09:08 Momo Cho M.D. Aug 24, 2016 22:03
--- NOTE | 2016-08-24 23:42 | Cardiology Progress Note ---
Assessment/Plan Assessment/Plan 1. Accelerated HTN, continue amlodipine, increase Toprol to 50mg daily, pain control. 2. s/p Quad tendon repair and left knee arthrotomy POD #4 Subjective Subjective No cardiac events. POD #4 Objective Last 24 Hour Vital Signs Date Time Temp Pulse Resp B/P Pulse Ox O2 Delivery O2 Flow Rate FiO2 08/24/16 20:00 98.2 78 20 152/85 98 Room Air 08/24/16 18:42 61 147/83 08/24/16 16:00 97.9 61 20 147/83 99 Room Air 08/24/16 12:00 98.7 63 18 142/88 98 Room Air 08/24/16 09:09 65 158/95 08/24/16 09:03 62 158/95 08/24/16 08:00 98.2 64 18 158/95 97 Room Air 08/24/16 04:00 97.5 64 16 139/89 95 Room Air Intake and Output 08/23/16 08/24/16 19:00 07:00 Intake Total 1050 ml 340 ml Balance 1050 ml 340 ml Intake Oral 720 ml 340 ml IV Total 330 ml # Voids 4 2 Objective HEENT: Normocephalic and atraumatic. Pupils both reactive to light. Dry oral mucosa. NECK: No JVD, no carotid bruit, carotid upstroke 2+ B/L CARDIOVASCULAR: Regular rate and rhythm. No murmurs, gallops or rubs, normal S1S2 LUNGS: Clear bilaterally. ABDOMEN: Soft, nontender, and nondistended. Positive bowel sounds. No hepatosplenomegaly or ascites. EXTREMITIES: No edema,clubbing or cyanosis. Left knee covered with dressing and bandage. CHRISTINA ARREOLA Aug 24, 2016 23:42
[2016-08-25] MEDS: Vancomycin 1250mg in D5W 275ml IVPB SCH ×2 (00:11→13:25)
[2016-08-25 00:22] VITALS: BP 145/81
[2016-08-25 05:00] VITALS: BP 151/91
[2016-08-25] MEDS: Cefepime HCl 1 GM in NS 55 ML IVPB SCH ×2 (05:42→17:58)
[2016-08-25] MEDS: metroNIDAZOLE 500mg tab ORAL SCH ×3 (05:42→20:08)
[2016-08-25 07:45] VITALS: BP 154/97
--- NOTE | 2016-08-25 08:10 | General Progress Note ---
Assessment/Plan Assessment/Plan ASSESSMENT: # Anemia 2/2 iron deficiency - hgb is currently at 10.7, guiac pending, begin on po iron # Left [id number] soft tissue injury with air in the suprapatellar area, suspect soft tissue infection. On abx as per ID service # Laceration of the left quadriceps muscle fascia and tendon status post surgical debridement and wash out. # Hypertension. Continue blood pressure medications RECS: - Begin po iron - Appreciate surgical and ID recs - Nutritional support and skin care - ABX as per ID service - F/U on occult blood stool - DVT ppx with heparin sq - Pain control - Follow from heme perspective Subjective Constitutional: Reports: no symptoms HEENT: Reports: no symptoms Cardiovascular: Reports: no symptoms Respiratory: Reports: no symptoms Gastrointestinal/Abdominal: Reports: poor appetite Genitourinary: Reports: no symptoms Neurologic/Psychiatric: Reports: no symptoms Endocrine: Reports: no symptoms Hematologic/Lymphatic: Reports: anemia Allergies: Coded Allergies: No Known Allergies (Unverified , 08/20/16) Subjective stable, not bleeding, no complaints, no vertigo Objective Last 24 Hour Vital Signs Date Time Temp Pulse Resp B/P Pulse Ox O2 Delivery O2 Flow Rate FiO2 08/25/16 07:45 97.7 60 20 154/97 97 Room Air 08/25/16 05:00 97.7 59 20 151/91 97 Room Air 08/25/16 00:22 97.9 63 19 145/81 95 Room Air 08/24/16 20:00 98.2 78 20 152/85 98 Room Air 08/24/16 18:42 61 147/83 08/24/16 16:00 97.9 61 20 147/83 99 Room Air 08/24/16 12:00 98.7 63 18 142/88 98 Room Air 08/24/16 09:09 65 158/95 08/24/16 09:03 62 158/95 Intake and Output 08/24/16 08/25/16 19:00 07:00 Intake Total 355 ml 662.416 ml Balance 355 ml 662.416 ml Intake Oral 300 ml 240 ml IV Total 55 ml 422.416 ml # Voids 4 4 Height (Feet): 5 Height (Inches): 10.00 Weight (Pounds): 150 General Appearance: no apparent distress EENT: TMs normal Neck: supple Cardiovascular: regular rhythm Respiratory/Chest: lungs clear Abdomen: non tender Extremities: non-tender Edema: 1+ Leg (L), 1+ Leg (R) Neurologic: alert Skin: warm/dry Brad Reyes Aug 25, 2016 08:10
[2016-08-25] MEDS: Vitamin D 1000 IU Tab ORAL SCH (08:42)
[2016-08-25] MEDS: Ascorbic Acid 500mg tab ORAL SCH (08:42)
[2016-08-25] MEDS: celeBREX 200mg Cap **SURGERY PATIENTS ONLY ORAL SCH (08:42)
[2016-08-25] MEDS: oxyCONTIN 20mg tab ORAL SCH ×2 (08:48→20:09)
[2016-08-25] MEDS: Docusate 100mg tablet ORAL SCH ×3 (08:48→17:55)
[2016-08-25] MEDS ORDERED: NS 550ML IV ONE (08:53)
[2016-08-25 09:04] LABS: BASOPHILS % (AUTO) 0.8 % (0.0-2.0); EOSINOPHILS % (AUTO) 1.6 % (0.0-3.0); LYMPHOCYTES % (AUTO) 27.5 % (20.0-45.0); MEAN CORPUSCULAR HEMOGLOBIN 27.7 PG (27.0-31.0); MEAN CORPUSCULAR HGB CONC 31.6 G/DL (32.0-36.0); MEAN CORPUSCULAR VOLUME 88 FL (80-99); MONOCYTES % (AUTO) 5.8 % (1.0-10.0); NEUTROPHILS % (AUTO) 64.3 % (45.0-75.0); PLATELET COUNT 330 K/UL (150-450); RED BLOOD COUNT 4.46 M/UL (4.70-6.10); RED CELL DISTRIBUTION WIDTH 14.3 % (11.6-14.8); WHITE BLOOD COUNT 5.2 K/UL (4.8-10.8)
[2016-08-25 12:00] VITALS: BP 153/100
[2016-08-25 16:00] VITALS: BP 136/82
[2016-08-25 20:00] VITALS: BP 139/84
--- NOTE | 2016-08-25 23:53 | Cardiology Progress Note ---
Assessment/Plan Assessment/Plan 1. Accelerated HTN, BP better controlled, continue amlodipine and Toprol, pain control. 2. s/p Quad tendon repair and left knee arthrotomy POD #5 3. Iron-deficiency anemia. Subjective Subjective No cardiac events. POD #5 Objective Last 24 Hour Vital Signs Date Time Temp Pulse Resp B/P Pulse Ox O2 Delivery O2 Flow Rate FiO2 08/25/16 20:00 97.9 58 19 139/84 98 Room Air 08/25/16 17:59 54 136/82 08/25/16 16:00 98.1 54 19 136/82 97 Room Air 08/25/16 12:00 97.0 59 18 153/100 97 Room Air 08/25/16 08:47 60 154/97 08/25/16 08:43 60 154/97 08/25/16 07:45 97.7 60 20 154/97 97 Room Air 08/25/16 05:00 97.7 59 20 151/91 97 Room Air 08/25/16 00:22 97.9 63 19 145/81 95 Room Air Intake and Output 08/24/16 08/25/16 19:00 07:00 Intake Total 355 ml 662.416 ml Balance 355 ml 662.416 ml Intake Oral 300 ml 240 ml IV Total 55 ml 422.416 ml # Voids 4 4 Laboratory Tests Test 08/25/16 08:30 White Blood Count 5.2 K/UL (4.8-10.8) Red Blood Count 4.46 M/UL (4.70-6.10) L Hemoglobin 12.4 G/DL (14.2-18.0) L Hematocrit 39.1 % (42.0-52.0) L Mean Corpuscular Volume 88 FL (80-99) Mean Corpuscular Hemoglobin 27.7 PG (27.0-31.0) Mean Corpuscular Hemoglobin Concent 31.6 G/DL (32.0-36.0) L Red Cell Distribution Width 14.3 % (11.6-14.8) Platelet Count 330 K/UL (150-450) Mean Platelet Volume 6.0 FL (6.5-10.1) L Neutrophils (%) (Auto) 64.3 % (45.0-75.0) Lymphocytes (%) (Auto) 27.5 % (20.0-45.0) Monocytes (%) (Auto) 5.8 % (1.0-10.0) Eosinophils (%) (Auto) 1.6 % (0.0-3.0) Basophils (%) (Auto) 0.8 % (0.0-2.0) Objective HEENT: Normocephalic and atraumatic. Pupils both reactive to light. Dry oral mucosa. NECK: No JVD, no carotid bruit, carotid upstroke 2+ B/L CARDIOVASCULAR: Regular rate and rhythm. No murmurs, gallops or rubs, normal S1S2 LUNGS: Clear bilaterally. ABDOMEN: Soft, nontender, and nondistended. Positive bowel sounds. No hepatosplenomegaly or ascites. EXTREMITIES: No edema,clubbing or cyanosis. Left knee covered with dressing and bandage. CHRISTINA ARREOLA Aug 25, 2016 23:53
[2016-08-26] VITALS: BP 139/89
[2016-08-26] MEDS: Vancomycin 1250mg in D5W 275ml IVPB SCH ×2 (01:00→12:13)
[2016-08-26 04:00] VITALS: BP 145/93
[2016-08-26] MEDS: metroNIDAZOLE 500mg tab ORAL SCH ×2 (05:32→13:27)
[2016-08-26] MEDS: Cefepime HCl 1 GM in NS 55 ML IVPB SCH (05:42)
[2016-08-26 08:00] VITALS: BP 138/90
[2016-08-26] MEDS: Vitamin D 1000 IU Tab ORAL SCH (08:33)
[2016-08-26] MEDS: Ascorbic Acid 500mg tab ORAL SCH (08:33)
[2016-08-26] MEDS: Docusate 100mg tablet ORAL SCH ×2 (08:33→12:13)
[2016-08-26] MEDS: oxyCONTIN 20mg tab ORAL SCH (08:33)
[2016-08-26] MEDS: celeBREX 200mg Cap **SURGERY PATIENTS ONLY ORAL SCH (08:33)
[2016-08-26 11:49] VITALS: BP 140/83
--- NOTE | 2016-08-26 15:39 | Infectious Diseases Prog Note ---
Assessment/Plan Problems: (1) Injury of left thigh Assessment & Plan: with air in the suprapatellar area, on vancomycin, cefepime and flagyl empirically to cover for possible infection , blood culture is negative , will switch to oral augmantin and doxycycline for another 10 days . (2) Laceration of left quadriceps muscle, fascia and tendon, initial encounter Assessment & Plan: S/P surgical repair , on wide spectrum antibiotics , culture remains negative, will treat with oral antibiotics for another 10 days (3) Hypertension Assessment & Plan: continue meds to keep systolic less than 140 Subjective Constitutional: Reports: no symptoms HEENT: Reports: no symptoms Respiratory: Reports: no symptoms Breasts: Reports: no symptoms Cardiovascular: Reports: no symptoms Gastrointestinal/Abdominal: Reports: no symptoms Genitourinary: Reports: no symptoms Neurologic: Reports: no symptoms Psychiatric: Reports: no symptoms Skin: Reports: no symptoms Endocrine: Reports: no symptoms Hematologic: Reports: no symptoms Allergies: Coded Allergies: No Known Allergies (Unverified , 08/20/16) Objective Vital Signs Last 24 Hour Vital Signs Date Time Temp Pulse Resp B/P Pulse Ox O2 Delivery O2 Flow Rate FiO2 08/26/16 11:49 98.1 56 20 140/83 99 Room Air 08/26/16 08:33 62 140/90 08/26/16 08:32 62 140/90 08/26/16 08:00 98.1 64 20 138/90 98 Room Air 08/26/16 04:00 97.5 58 18 145/93 97 Room Air 08/26/16 00:00 97.7 64 18 139/89 97 Room Air 08/25/16 20:00 97.9 58 19 139/84 98 Room Air 08/25/16 17:59 54 136/82 08/25/16 16:00 98.1 54 19 136/82 97 Room Air Height (Feet): 5 Height (Inches): 10.00 Weight (Pounds): 150 General Appearance: WD/WN, no acute distress HEENT: normocephalic, atraumatic, anicteric, mucous membranes moist Respiratory/Chest: chest wall non-tender, lungs clear, normal breath sounds, no respiratory distress, no accessory muscle use Cardiovascular: normal peripheral pulses, normal rate, regular rhythm Abdomen: normal bowel sounds, soft, non tender, no organomegaly, non distended Extremities: no cyanosis, no clubbing Skin: no rash, no lesions Laboratory Tests Test 08/26/16 00:30 Vancomycin Level Trough 10.9 ug/mL (5.0-12.0) Current Medications Medications (Trade) Dose Ordered Sig/[place] Route PRN Reason Start Time Stop Time Status Last Admin Dose Admin Acetaminophen (Tylenol) 650 mg Q6H PRN ORAL Mild Pain/Temp > 100.5 08/20/16 14:45 09/19/16 14:44 Acetaminophen/ Hydrocodone Bitart ([place] 5/325) 1 tab Q4H PRN ORAL Mild Pain (Pain Scale 1-3) 08/21/16 06:45 08/28/16 06:44 Amlodipine Besylate 5 mg 5 mg BID ORAL 08/23/16 09:00 09/22/16 08:59 08/26/16 08:32 Ascorbic Acid (Vitamin C) 500 mg DAILY ORAL 08/25/16 09:00 09/24/16 08:59 08/26/16 08:33 Cefepime HCl/ Sodium Chloride (Maxipime/Sodium Chloride) 55 ml @ 110 mls/hr Q12HR@0600,1800 IVPB 08/22/16 18:00 08/29/16 17:59 08/26/16 05:42 Celecoxib (CeleBREX) 200 mg DAILY ORAL 08/21/16 09:00 09/20/16 08:59 08/26/16 08:33 Clonidine HCl (Catapres) 0.1 mg Q4H PRN ORAL SBP>160, DBP>90 08/20/16 13:15 09/19/16 13:14 08/23/16 19:47 Docusate Sodium (Colace) 100 mg THREE TIMES A DAY ORAL 08/20/16 18:00 09/19/16 17:59 08/26/16 08:33 Ferrous Sulfate (Feosol) 325 mg BID ORAL 08/25/16 09:00 09/24/16 08:59 08/26/16 08:33 Hydromorphone HCl (Dilaudid) 0.5 mg Q4H PRN SUBQ Mild Pain (Pain Scale 1-3) 08/20/16 14:45 08/27/16 14:44 Hydromorphone HCl (Dilaudid) 1 mg Q3H PRN SUBQ Moderate Pain (Pain Scale 4-6) 08/20/16 14:45 08/27/16 14:44 Hydromorphone HCl (Dilaudid) 2 mg Q2H PRN SUBQ Severe Pain (Pain Scale 7-10) 08/20/16 14:45 08/27/16 14:44 Metoprolol Succinate (Toprol XL) 50 mg DAILY ORAL 08/25/16 09:00 09/24/16 08:59 08/26/16 08:33 Metronidazole 500 mg 500 mg Q8HR ORAL 08/21/16 14:00 08/28/16 13:59 08/26/16 13:27 Ondansetron HCl (Zofran) 4 mg Q6H PRN IVP Nausea & Vomiting 08/20/16 14:45 09/19/16 14:44 Oxycodone HCl (OxyCONTIN) 20 mg EVERY 12 HOURS ORAL 08/20/16 21:00 08/27/16 20:59 08/23/16 21:30 Sennosides (Senokot) 8.6 mg DAILYPRN PRN ORAL Constipation 08/25/16 08:15 09/24/16 08:14 Temazepam (Restoril) 7.5 mg HSPRN PRN ORAL Insomnia 08/20/16 14:45 08/27/16 14:44 Vancomycin HCl (Vanco rx to dose) 1 ea DAILY PRN MISC PER RX PROTOCOL 08/22/16 17:00 09/21/16 16:59 Vancomycin HCl/ Dextrose (Vancomycin/D5W) 275 ml @ 183.708 mls/hr Q12H IVPB 08/23/16 13:00 08/28/16 12:59 08/26/16 12:13 Vitamin D (Vitamin D) 1,000 intlu DAILY ORAL 08/21/16 09:00 09/20/16 08:59 08/26/16 08:33 Momo Cho M.D. Aug 26, 2016 15:39
--- NOTE | 2016-08-26 16:12 | General Progress Note ---
Assessment/Plan Problem List: (1) Injury of left thigh ICD Codes: S79.922A - Unspecified injury of left thigh, initial encounter SNOMED: 2985186 (2) Hypertension ICD Codes: I10 - Essential (primary) hypertension SNOMED: 33652393 (3) Laceration ICD Codes: T14.8 - Other injury of unspecified body region SNOMED: 513034415 Status: progressing Assessment/Plan reviewed chart and labs vitals stable wrote dc abx per id Subjective ROS Limited/Unobtainable: Yes Constitutional: Reports: no symptoms Allergies: Coded Allergies: No Known Allergies (Unverified , 08/20/16) Subjective pain at surgical site Objective Last 24 Hour Vital Signs Date Time Temp Pulse Resp B/P Pulse Ox O2 Delivery O2 Flow Rate FiO2 08/26/16 11:49 98.1 56 20 140/83 99 Room Air 08/26/16 08:33 62 140/90 08/26/16 08:32 62 140/90 08/26/16 08:00 98.1 64 20 138/90 98 Room Air 08/26/16 04:00 97.5 58 18 145/93 97 Room Air 08/26/16 00:00 97.7 64 18 139/89 97 Room Air 08/25/16 20:00 97.9 58 19 139/84 98 Room Air 08/25/16 17:59 54 136/82 Intake and Output 08/25/16 08/26/16 19:00 07:00 Intake Total 675 ml 420 ml Balance 675 ml 420 ml Intake Oral 400 ml 420 ml IV Total 275 ml # Voids 2 4 Laboratory Tests 08/26/16 00:30: Vancomycin Level Trough 10.9 Height (Feet): 5 Height (Inches): 10.00 Weight (Pounds): 150 EENT: PERRL/EOMI Neck: supple Cardiovascular: normal rate Respiratory/Chest: lungs clear Abdomen: soft Brando Glass MD Aug 26, 2016 16:12
--- NOTE | 2016-08-26 20:34 | General Progress Note ---
Assessment/Plan Assessment/Plan ASSESSMENT: # Anemia 2/2 iron deficiency - hgb is currently at 10.7, guiac is negative, continue po iron # Left [id number] soft tissue injury with air in the suprapatellar area, suspect soft tissue infection. On abx as per ID service # Laceration of the left quadriceps muscle fascia and tendon status post surgical debridement and wash out. # Hypertension. Continue blood pressure medications RECS: - Continue po iron - Appreciate surgical and ID recs - Nutritional support and skin care - ABX as per ID service - F/U on occult blood stool - DVT ppx with heparin sq - Pain control - Stable from heme for discharge Subjective Constitutional: Reports: no symptoms HEENT: Reports: no symptoms Cardiovascular: Reports: no symptoms Respiratory: Reports: no symptoms Gastrointestinal/Abdominal: Reports: poor fluid intake Genitourinary: Reports: no symptoms Neurologic/Psychiatric: Reports: no symptoms Endocrine: Reports: no symptoms Hematologic/Lymphatic: Reports: anemia Allergies: Coded Allergies: No Known Allergies (Unverified , 08/20/16) Subjective stable, not bleeding, no complaints, no hematochezia Objective Last 24 Hour Vital Signs Date Time Temp Pulse Resp B/P Pulse Ox O2 Delivery O2 Flow Rate FiO2 08/26/16 11:49 98.1 56 20 140/83 99 Room Air 08/26/16 08:33 62 140/90 08/26/16 08:32 62 140/90 08/26/16 08:00 98.1 64 20 138/90 98 Room Air 08/26/16 04:00 97.5 58 18 145/93 97 Room Air 08/26/16 00:00 97.7 64 18 139/89 97 Room Air Intake and Output 08/25/16 08/26/16 19:00 07:00 Intake Total 675 ml 420 ml Balance 675 ml 420 ml Intake Oral 400 ml 420 ml IV Total 275 ml # Voids 2 4 Laboratory Tests 08/26/16 00:30: Vancomycin Level Trough 10.9 Height (Feet): 5 Height (Inches): 10.00 Weight (Pounds): 150 General Appearance: alert EENT: TMs normal Neck: normal alignment Cardiovascular: regular rhythm Respiratory/Chest: lungs clear Abdomen: non tender Extremities: non-tender Edema: 1+ Leg (L), 1+ Leg (R) Edema: mild edema Neurologic: alert Skin: warm/dry Brad Reyes Aug 26, 2016 20:34
[2016-08-27 10:38] LABS: OTHERS PATHOLOGIST COMMENT
[2016-08-27] MEDS ORDERED: METOPROLOL TART50 MG ORAL (14:32)
[2016-08-27] MEDS ORDERED: AMLODIPINE BESYL5 MG ORAL (14:32)
--- NOTE | 2016-08-27 14:38 | Discharge Summary ---
Discharge Summary Hospital Course Date of Admission Aug 20, 2016 at 10:29 Date of Discharge Aug 26, 2016 at 17:46 Admitting Diagnosis left thigh laceration ALFONSO Bloom is a 60 year old male who was admitted on Aug 20, 2016 at 10:29 for Left Thigh Laceration Hospital Course DC SUMMARY #[id number] Discharge Medications New Medications: Amlodipine Besylate* (Amlodipine Besylate*) 5 Mg Tablet 5 MG ORAL DAILY, #30 TAB Metoprolol Tartrate* (Metoprolol Tartrate*) 50 Mg Tablet 50 MG ORAL DAILY, #30 TAB 0 Refills Continued Medications: Cholecalciferol (Vitamin D3)* (Vitamin D*) 1,000 Unit Tablet 1000 UNIT ORAL DAILY, TAB Fish Oil (Fish Oil 1,000 mg Capsule) 1 Each Capsule 1000 MG ORAL DAILY, CAP Glucosamine Sulfate 2KCL (Glucosamine) 1,000 Mg Tablet 1000 MG PO DAILY, TAB Discharge Condition Upon Discharge: stable Discharge Disposition Patient was discharged to Home (01) Discharge Diagnoses: Discharge Instructions Discharge Instructions Special Instructions I have been assigned to complete a D/C Summary on this account. I was not involved in the patient management Shelley Sepulveda NP ([facility]) Aug 27, 2016 14:38
--- NOTE | 2016-08-28 03:38 | Discharge Summary 2 SIG ---
DATE OF ADMISSION: 08/20/2016 DATE OF DISCHARGE: 08/26/2016 REASON FOR ADMISSION: 60-year-old male presented to emergency room after he sustained injury to his left thigh during construction with circular saw. The patient reported pain in the left thigh. No numbness. No weakness in his foot or leg. The injury occurred just prior to arrival. Initially, large amount of bleeding. Left knee x-ray revealed soft tissue intra-articular gas likely due to penetrating trauma. No associated fracture or foreign body identified. Questionable injury to quadriceps tendon. No evidence of patellar displacement. In the emergency room, laboratory workup was done which was unremarkable. The wound was irrigated. Tdap vaccine was given. The patient started on empiric antibiotics. Orthopedic surgeon consult was requested. The patient exhibited evidence of high blood pressure 192/102. Analgesic provided. Patient was admitted for further management. ADMITTING DIAGNOSES: 1. Left thigh deep laceration of the left quadriceps muscle, fossa, and tendon. 2. Pain , left thigh. 3. Hypertensive urgency. HOSPITAL STAY: The patient admitted to the hospital. Orthopedic consult was requested due to the injury to quadriceps muscle. The patient was taken for surgery and subsequently, the patient had irrigation and debridement with washout and quadriceps repair on 08/20/2016. The patient also had an insertion of Hemovac drain. Pain management was provided. Hemovac drainage was monitored. Hemovac was subsequently discontinued. Blood pressure was managed with calcium channel emanuel and beta-emanuel. Cardiology followed. Calcium channel emanuel dose was increased. DVT and GI prophylaxis provided. The patient worked with the physical and occupational therapists. Noted that the patient had mild anemia. Hematology consult was requested. Anemia workup revealed stable iron, folate, and B12, likely anemia secondary to acute blood loss. The patient was stable for discharge. DISCHARGE DIAGNOSES: 1. Left traumatic arthrotomy with quadriceps tendon rupture with air in the knee. 2. Pain left thigh , secondary to above. 3. Status post irrigation and debridement with washout and quadriceps tendon repair on 08/20/2016. 4. Hypertensive urgency, resolved. 5. Anemia due to acute blood loss, stable. DISCHARGE MEDICATIONS: See medication reconciliation list. DISCHARGE INSTRUCTIONS: The patient discharged home. Follow up with the surgeon as advised. Brando Glass M.D. I have been assigned to dictate discharge summary on this account and I was not involved in the patient's management. Shelley Sepulveda ([place]anchtein) N.PClaudia DR: Vishal JOB#: [id number] CC: RAQUEL
== END 2016-08-26 17:46 | disposition home or self-care (01) | DRG 313 ==
LOC: EDBD 08:59 → EMR 09:30 → 3E 10:29 → EDBEDREQSVC 11:21 → EDBEDREQ 11:27
PROC: 0S9D00Z Drainage of Left Knee Joint with Drainage Device, Open Approach (ICD-10-PCS; 2016-08-20)
PROC: 0JDM0ZZ Extraction of Left Upper Leg Subcutaneous Tissue and Fascia, Open Approach (ICD-10-PCS; 2016-08-20)
PROC: 0JDP0ZZ Extraction of Left Lower Leg Subcutaneous Tissue and Fascia, Open Approach (ICD-10-PCS; 2016-08-20)
PROC: 0LQM0ZZ Repair Left Upper Leg Tendon, Open Approach (ICD-10-PCS; principal; 2016-08-20 14:45)
DX: S76.122A Laceration of left quadriceps muscle, fascia and tendon, initial encounter (principal); D62 Acute posthemorrhagic anemia; I10 Essential (primary) hypertension; S76.112A Strain of left quadriceps muscle, fascia and tendon, initial encounter; X58.XXXA Exposure to other specified factors, initial encounter; Z23 Encounter for immunization; W31.2XXA Contact with powered woodworking and forming machines, initial encounter; Y93.H3 Activity, building and construction; Y92.61 Building [any] under construction as the place of occurrence of the external cause; I16.0 Hypertensive urgency; F17.200 Nicotine dependence, unspecified, uncomplicated; S89.82XA Other specified injuries of left lower leg, initial encounter
CPT/HCPCS: 36415; 80048; 80053; 80202; 82247; 82607; 82728; 82746; 83540; 83550; 85007; 85025; 85044; 85060; 85610; 85730; 86900; 86901; 87040; 90471; 90715; 93005; 94003; 94150; J2180; J2250